=== PATIENT | female | born 1980 | race Caucasian/White ===

== ENCOUNTER 2016-10-26 11:40 | Outpatient (CLI) | payer BC, OTHER | END 2016-10-26 11:41 | disposition home or self-care (01) | DX: R00.0 Tachycardia, unspecified (principal); D50.9 Iron deficiency anemia, unspecified; E78.2 Mixed hyperlipidemia ==

== ENCOUNTER 2016-11-02 08:03 | Outpatient (CLI) | payer OTHER | END 2016-11-02 08:04 | disposition home or self-care (01) | DX: E01.0 Iodine-deficiency related diffuse (endemic) goiter (principal) ==

== ENCOUNTER 2016-12-12 08:10 | Outpatient (CLI) | payer OTHER | END 2016-12-12 08:11 | disposition home or self-care (01) | DX: Z51.81 Encounter for therapeutic drug level monitoring (principal); E78.2 Mixed hyperlipidemia ==

== ENCOUNTER 2017-07-03 08:00 | Outpatient (CLI) | payer OTHER | END 2017-07-03 08:01 | disposition home or self-care (01) | LOC: LAB.WCP 08:00 | PROVIDERS: ATTEND Physician Assistant Medical | DX: J02.9 Acute pharyngitis, unspecified (principal) | CPT/HCPCS: 87070; 87275; 87276 ==

== ENCOUNTER 2017-07-13 10:42 | Outpatient (CLI) | payer OTHER ==
[2017-07-13 19:23] LABS: BASOPHILS # (AUTO) 0.1 10^3/uL (0.0-0.1); BASOPHILS % (AUTO) 0.6 %; EOSINOPHILS # (AUTO) 0.3 10^3/uL (0.0-0.7); EOSINOPHILS % (AUTO) 2.9 %; HCT - HEMATOCRIT 42.4 % (37.0-47.0); HGB - HEMOGLOBIN 14.2 g/dL (12.0-16.0); LYMPHOCYTES # (AUTO) 2.6 10^3/uL (1.5-3.5); LYMPHOCYTES % (AUTO) 25.5 %; MEAN CORPUSCULAR HGB CONC 33.5 g/dL (32.0-36.0); MEAN CORPUSCULAR VOLUME 89.8 fL (81.0-99.0); MEAN PLATELET VOLUME 8.5 fL (7.9-10.8); MONOCYTES # (AUTO) 0.6 10^3/uL (0.0-1.0); MONOCYTES % (AUTO) 6.3 %; NEUTROPHILS # (AUTO) 6.6 10^3/uL (1.5-6.6); NEUTROPHILS % (AUTO) 64.7 %; RED BLOOD COUNT 4.72 10^6/uL (4.20-5.40); RED CELL DISTRIBUTION WIDTH 12.5 % (12.0-15.0); UNCORRECTED WHITE BLOOD COUNT 10.1 x10^3/uL; WHITE BLOOD COUNT 10.1 x10^3/uL (4.8-10.8)
== END 2017-07-13 10:43 | disposition home or self-care (01) ==
LOC: LAB.WCP 10:42
PROVIDERS: ATTEND Physician Assistant Medical
DX: J20.9 Acute bronchitis, unspecified (principal)
CPT/HCPCS: 36415; 85025

== ENCOUNTER 2017-10-24 18:19 | Emergency (ER) | payer OTHER ==
[2017-10-24] MEDS ORDERED: KETOROLAC 60 MG/2 ML VIAL IVP STA (20:09)
[2017-10-24] MEDS ORDERED: SODIUM CHLORIDE 0.9% 1,000 ML IV ONE (20:09)
[2017-10-24] MEDS ORDERED: diphenhydrAMINE INJ 50 MG/ML VIAL IVP STA (20:10)
[2017-10-24] MEDS ORDERED: METOCLOPRAMIDE 10 MG/2 ML VIAL IVP STA (20:10)
--- NOTE | 2017-10-24 20:21 | ED Physician Documentation ---
PD HPI HEADACHE - Stated complaint Stated Complaint: GARCIA/BLURRY VISION - Chief complaint Chief Complaint: Neuro - History obtained from History obtained from: Patient, Friend - History of Present Illness Timing - onset: How many days ago (5) Timing - onset during: Rest Timing - duration: Days Timing - details: Gradual onset, Still present Location: Back Quality: Aching. No: Like head is exploding Associated symptoms: Vision changes. No: Fever, Stiff neck, Nausea, Vomiting, Weakness Improved by: Rest, Dark room, Quiet Worsened by: Light, Noise Similar symptoms before: Has not had sx before Recently seen: Not recently seen - Additional information Additional information: Patient is a 36 year old female with no significant past medical history who is presenting to the emergency department for the last five days. patient states that it started slowly and has become progressively worse. Patient states that it is in the back of her head. Patient reports that it gets better when she lies down or has a dark room. Review of Systems Constitutional: denies: Fever, Chills, Myalgias Eyes: reports: Decreased vision, Photophobia Ears: denies: Ear pain, Drainage/discharge Nose: denies: Congestion, Sinus pressure / pain Throat: denies: Dental pain / toothache, Sore throat Cardiac: denies: Chest pain / pressure, Palpitations GI: denies: Nausea, Vomiting : reports: Reviewed and negative Skin: reports: Reviewed and negative Musculoskeletal: denies: Neck pain, Back pain, Extremity pain, Joint pain Neurologic: reports: Headache. 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: section, Dilation and currettage, LEEP (Cervical surgery) - Present Medications Home Medications: Ambulatory Orders Medication Instructions Recorded Confirmed Atorvastatin Calcium 80 mg PO DAILY 10/24/17 10/24/17 Ubidecarenone/Vitamin E Mixed 1 cap PO DAILY 10/24/17 10/24/17 [[id number] E 100 mg-10 Unit Sfg] - Allergies Allergies/Adverse Reactions: Allergies Allergy/AdvReac Type Severity Reaction Status Date / Time iodine Allergy Severe Respiratory Verified 10/24/17 19:14 naproxen Allergy Unknown unknown Verified 10/24/17 19:14 doxycyccline Allergy Unknown unknown Uncoded 10/24/17 19:14 - Social History Does the pt smoke?: No Smoking Status: Never smoker Does the pt drink ETOH?: No Does the pt have substance abuse?: No - Immunizations Immunizations are current?: Yes - POLST Patient has POLST: No PD ED PE NORMAL - Vitals Vital signs reviewed: Yes - General General: Alert and oriented X 3, No acute distress, Well developed/nourished - HEENT HEENT: Atraumatic, PERRL, Moist mucous membranes - Neck Neck: Supple, no meningeal sign - Cardiac Cardiac: RRR, No murmur - Respiratory Respiratory: No respiratory distress, Clear bilaterally - Abdomen Abdomen: Soft, Non tender, Non distended - Derm Derm: Normal color, Warm and dry, No rash - Extremities Extremities: No deformity - Neuro Neuro: Alert and oriented X 3, pulpwood cutter 2-12 intact, No motor deficit, No sensory deficit, Normal speech Eye Opening: Spontaneous Motor: Obeys Commands Verbal: Oriented GCS Score: 15 - Psych Psych: Normal mood Results - Vitals Vitals: Vital Signs - 24 hr 10/24/17 10/24/17 18:29 21:17 Temperature 37.0 C Heart Rate 123 H 100 Respiratory 18 16 Rate Blood Pressure 147/104 H 143/100 H O2 Saturation 99 98 Oxygen O2 Source Room air PD MEDICAL DECISION MAKING - ED course Complexity details: reviewed old records, reviewed results, re-evaluated patient , considered differential, d/w patient ED course: Patient was seen and examined at bedside. Patient was well appearing and in no acute distress. IV access was gained and patient was treated with toradol, reglan benadryl and fluids. Patient had no neurological deficit and was well appearing. Patient's headache improved to a three with the treatment. Patient wa mildly hypertensive, and was agreed that she would monitor her blood pressures for the next three days and had a follow up appointment on sunday. While serious etiologies of the headache were considered they were unlikely at this time. Patient required no further work up and was stable for discharge with outpatient follow up. Departure - Departure Disposition: Home, Self Care Clinical Impression: Headache Condition: Good Instructions: ED Headache Tension Follow-Up: Yolanda Lilly PA-C [Primary Care Provider] - Within 3 Days Comments: Your blood pressure was high today and you will need to monitor it over the next few days. You should take it every morning and every night and bring the results with you to your doctor's office. You should sleep in a dark room tonight and avoid any stimuli. You can alternate between motrin and tylenol as needed for pain. You may return to the emergency department at any time for new , worsening or uncontrollable symptoms. Discharge Date/Time: 10/24/17 21:34
[2017-10-24 21:18] VITALS: BP 143/100
== END 2017-10-24 21:34 | disposition home or self-care (01) ==
LOC: ED 18:19
DX: R51 Headache (principal); R03.0 Elevated blood-pressure reading, without diagnosis of hypertension
CPT/HCPCS: 96361; 96374; 96375; 99283

== ENCOUNTER 2018-03-07 10:48 | Outpatient (CLI) | payer OTHER ==
[2018-03-07 19:06] LABS: BASOPHILS % (AUTO) 0.7 %; EOSINOPHILS # (AUTO) 0.1 10^3/uL (0.0-0.7); EOSINOPHILS % (AUTO) 1.7 %; LYMPHOCYTES # (AUTO) 1.5 10^3/uL (1.5-3.5); LYMPHOCYTES % (AUTO) 21.7 %; MEAN CORPUSCULAR HEMOGLOBIN 29.2 pg (27.0-31.0); MEAN CORPUSCULAR HGB CONC 32.2 g/dL (32.0-36.0); MEAN CORPUSCULAR VOLUME 90.7 fL (81.0-99.0); MEAN PLATELET VOLUME 9.5 fL (7.9-10.8); MONOCYTES # (AUTO) 0.4 10^3/uL (0.0-1.0); MONOCYTES % (AUTO) 5.7 %; NEUTROPHILS # (AUTO) 4.8 10^3/uL (1.5-6.6); NEUTROPHILS % (AUTO) 70.2 %; PLT - PLATELET COUNT 326 10^3/uL (130-450); RED BLOOD COUNT 4.79 10^6/uL (4.20-5.40); RED CELL DISTRIBUTION WIDTH 13.2 % (12.0-15.0); WHITE BLOOD COUNT 6.8 x10^3/uL (4.8-10.8)
[2018-03-07 19:21] LABS: HEMOGLOBIN A1C 0.58 g/dL; HEMOGLOBIN A1C % 5.5 % (4.6-6.2)
[2018-03-07 19:31] LABS: % IRON SATURATION 21 % (20-50); ALBUMIN 4.4 g/dL (3.2-5.5); ALBUMIN/GLOBULIN RATIO 1.1 (1.0-2.2); ALKALINE PHOSPHATASE 67 IU/L (42-121); ALT ALANINE AMINOTRANSFERASE 20 IU/L (10-60); AST ASPARTATE AMINOTRANSFERASE 18 IU/L (10-42); BILIRUBIN,TOTAL 0.6 mg/dL (0.2-1.0); BUN - BLOOD UREA NITROGEN 10 mg/dL (6-20); CALCIUM 9.3 mg/dL (8.5-10.3); CARBON DIOXIDE - CO2 24 mmol/L (21-32); CHLORIDE 101 mmol/L (101-111); CHOL/HDL RATIO 5.9 (<4.4); CHOLESTEROL 308 mg/dL; CREATININE 0.6 mg/dL (0.4-1.0); GFR - MDRD 111 (>89); GLUCOSE 92 mg/dL (70-100); HDL CHOLESTEROL 52 mg/dL; IRON 84 ug/dL (28-170); LDL CHOLESTEROL,CALCULATED 212 mg/dL; LDL/HDL RATIO 4.1 (<4.4); SODIUM 134 mmol/L (135-145); THYROID STIMULATING HORMONE 1.18 uIU/mL (0.34-5.60); TOTAL IRON BINDING CAPACITY 398 ug/dL (250-450); TOTAL PROTEIN 8.4 g/dL (6.7-8.2); TRANSFERRIN 284 mg/dL (192-382); VLDL CHOLESTEROL 44 mg/dL
[2018-03-07 19:38] LABS: FERRITIN 62.2 ng/mL (11.0-306.8)
[2018-03-07 19:41] LABS: FOLATE 16.6 ng/mL (5.90 - >24.8)
== END 2018-03-07 10:49 | disposition home or self-care (01) ==
LOC: LAB.WCP 10:48
PROVIDERS: ATTEND Physician Assistant
DX: Z00.00 Encounter for general adult medical examination without abnormal findings (principal); R53.83 Other fatigue; E78.2 Mixed hyperlipidemia; E66.3 Overweight; E55.9 Vitamin D deficiency, unspecified; D50.9 Iron deficiency anemia, unspecified; Z79.899 Other long term (current) drug therapy
CPT/HCPCS: 36415; 80053; 80061; 82306; 82607; 82728; 82746; 83036; 83540; 83721; 84443; 84466; 85025

== ENCOUNTER 2018-04-16 07:54 | Outpatient (CLI) | payer OTHER ==
[2018-04-16 13:51] LABS: ALBUMIN 3.7 g/dL (3.2-5.5); ALBUMIN/GLOBULIN RATIO 0.9 (1.0-2.2); ALKALINE PHOSPHATASE 78 IU/L (42-121); ALT ALANINE AMINOTRANSFERASE 28 IU/L (10-60); AST ASPARTATE AMINOTRANSFERASE 22 IU/L (10-42); BILIRUBIN,TOTAL 0.6 mg/dL (0.2-1.0); BUN - BLOOD UREA NITROGEN 9 mg/dL (6-20); CALCIUM 8.9 mg/dL (8.5-10.3); CARBON DIOXIDE - CO2 26 mmol/L (21-32); CHLORIDE 107 mmol/L (101-111); CHOL/HDL RATIO 3.6 (<4.4); CHOLESTEROL 132 mg/dL; CREATININE 0.7 mg/dL (0.4-1.0); GFR - MDRD 93 (>89); GLUCOSE 99 mg/dL (70-100); HDL CHOLESTEROL 37 mg/dL; LDL CHOLESTEROL,CALCULATED 67 mg/dL; LDL/HDL RATIO 1.8 (<4.4); SODIUM 138 mmol/L (135-145); TOTAL PROTEIN 7.7 g/dL (6.7-8.2); VLDL CHOLESTEROL 28 mg/dL
== END 2018-04-16 07:55 | disposition home or self-care (01) ==
LOC: LAB.WCP 07:54
PROVIDERS: ATTEND Physician Assistant
DX: I10 Essential (primary) hypertension (principal); E78.2 Mixed hyperlipidemia
CPT/HCPCS: 36415; 80053; 80061; 83721

== ENCOUNTER 2018-05-31 20:52 | Emergency (ER) | payer OTHER ==
--- NOTE | 2018-05-31 22:46 | ED Physician Documentation ---
History of Present Illness - Stated complaint Stated Complaint: SOA/BACK PX/FEV/JOSE F - Chief complaint Chief Complaint: Resp - History obtained from History obtained from: Patient - History of Present Illness Timing: Other (headache: today ruq/epigastric pain x 10 days) Pain level now: 6 Improved by: no ameliorating factors Worsened by: no exacerbating factors - Additonal information Additional information: c/o 10 days of intermittent ruq and epigastric pain that radiates to back. also c/o bifrontal headache x 1 day. saw PMD 1 week ago, rx augmentin and flonase ( patient says diagnosis was sinusitis). Review of Systems Constitutional: reports: Reviewed and negative Cardiac: reports: Reviewed and negative Respiratory: reports: Reviewed and negative GI: reports: Abdominal Pain, Nausea. denies: Vomiting, Constipation, Diarrhea : denies: Dysuria, Frequency Skin: denies: Rash Neurologic: reports: Headache. 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, Tubal ligation, LEEP ( Cervical surgery), Other - Present Medications Home Medications: Ambulatory Orders Medication Instructions Recorded Confirmed Atorvastatin Calcium 80 mg PO DAILY 10/24/17 10/24/17 Ubidecarenone/Vitamin E Mixed 1 cap PO DAILY 10/24/17 10/24/17 [[id number] E 100 mg-10 Unit Sfg] oxyCODONE/ACET 5/325 [Percocet 5 1 - 2 each PO Q6H PRN #14 tablet 06/01/18 mg/325 mg] - Allergies Allergies/Adverse Reactions: Allergies Allergy/AdvReac Type Severity Reaction Status Date / Time iodine Allergy Severe Respiratory Verified 05/31/18 21:08 naproxen Allergy Unknown unknown Verified 05/31/18 21:08 doxycyccline Allergy Unknown unknown Uncoded 05/31/18 21:08 - Social History Does the pt smoke?: No Smoking Status: Never smoker Does the pt drink ETOH?: No Does the pt have substance abuse?: No - Immunizations Immunizations are current?: Yes - POLST Patient has POLST: No PD ED PE NORMAL - Vitals Vital signs reviewed: Yes - General General: Alert and oriented X 3, No acute distress, Well developed/nourished - HEENT HEENT: PERRL, EOMI, Ears normal, Moist mucous membranes, Pharynx benign - Neck Neck: Supple, no meningeal sign - Cardiac Cardiac: RRR, No murmur - Respiratory Respiratory: No respiratory distress, Clear bilaterally - Abdomen Abdomen: Normal bowel sounds, Soft, Non distended, Other (mild RUQ and epigastrid tenderness without rebound or guarding) - Derm Derm: Normal color, Warm and dry - Neuro Neuro: Alert and oriented X 3, manager games 2-12 intact, No motor deficit, No sensory deficit, Normal speech Eye Opening: Spontaneous Motor: Obeys Commands Verbal: Oriented GCS Score: 15 Results - Vitals Vitals: Oxygen O2 Source Room air - Labs Labs: Laboratory Tests 05/31/18 05/31/18 05/31/18 23:20 23:25 23:25 WBC 9.0 RBC 4.86 Hgb 14.8 Hct 42.8 MCV 88.2 MCH 30.4 MCHC 34.5 RDW 13.0 Plt Count 324 MPV 8.9 Neut # (Auto) 6.4 Lymph # (Auto) 1.9 [place] # (Auto) 0.5 Eos # (Auto) 0.1 Baso # (Auto) 0.1 Absolute Nucleated RBC 0.00 Nucleated RBC % 0.0 D-Dimer Sodium 137 Potassium 3.7 Chloride 100 L Carbon Dioxide 27 Anion Gap 10.0 BUN 12 Creatinine 0.7 Estimated GFR (MDRD) 93 Glucose 102 H Calcium 9.7 Total Bilirubin 0.8 AST 28 ALT 34 Alkaline Phosphatase 94 Total Protein 9.0 H Albumin 4.8 Globulin 4.2 Albumin/Globulin Ratio 1.1 Lipase 27 Urine Color YELLOW Urine Clarity CLEAR Urine pH 6.0 Ur Specific [place] 1.010 Urine Protein NEGATIVE Urine Glucose (UA) NEGATIVE Urine Ketones NEGATIVE Urine Occult Blood NEGATIVE Urine Nitrite NEGATIVE Urine Bilirubin NEGATIVE Urine Urobilinogen 0.2 (NORMAL) Ur Leukocyte Esterase NEGATIVE Ur Microscopic Review NOT INDICATED Urine Culture Comments NOT INDICATED 05/31/18 23:25 WBC RBC Hgb Hct MCV MCH MCHC RDW Plt Count MPV Neut # (Auto) Lymph # (Auto) [place] # (Auto) Eos # (Auto) Baso # (Auto) Absolute Nucleated RBC Nucleated RBC % D-Dimer 200.8 Sodium Potassium Chloride Carbon Dioxide Anion Gap BUN Creatinine Estimated GFR (MDRD) Glucose Calcium Total Bilirubin AST ALT Alkaline Phosphatase Total Protein Albumin Globulin Albumin/Globulin Ratio Lipase Urine Color Urine Clarity Urine pH Ur Specific [place] Urine Protein Urine Glucose (UA) Urine Ketones Urine Occult Blood Urine Nitrite Urine Bilirubin Urine Urobilinogen Ur Leukocyte Esterase Ur Microscopic Review Urine Culture Comments - Rads (name of study) RUQ US Radiology: Prelim report reviewed, See rad report PD MEDICAL DECISION MAKING - ED course Complexity details: reviewed results, re-evaluated patient, considered differential, d/w patient - Sepsis Event Vital Signs: Oxygen O2 Source Room air Departure - Departure Disposition: Home, Self Care Clinical Impression: Abdominal pain Headache Qualifiers: Headache type: unspecified Headache chronicity pattern: acute headache Intractability: not intractable Qualified Code(s): R51 - Headache Condition: Good Instructions: ED Abdominal Pain Unkn Cause, ED Cephalgia Unspecified Follow-Up: Della Guerrero PA [Primary Care Provider] - Prescriptions: oxyCODONE/ACET 5/325 [Percocet 5 mg/325 mg] 1 - 2 each PO Q6H PRN #14 tablet PRN Reason: Pain Discharge Date/Time: 06/01/18 02:03
[2018-05-31] MEDS ORDERED: HYDROcod/ACETAM 5/325 MG TABLET PO STA (23:09)
[2018-05-31 23:29] LABS: BASOPHILS # (AUTO) 0.1 10^3/uL (0.0-0.1); BASOPHILS % (AUTO) 0.8 %; EOSINOPHILS # (AUTO) 0.1 10^3/uL (0.0-0.7); HGB - HEMOGLOBIN 14.8 g/dL (12.0-16.0); LYMPHOCYTES # (AUTO) 1.9 10^3/uL (1.5-3.5); LYMPHOCYTES % (AUTO) 21.2 %; MEAN CORPUSCULAR HEMOGLOBIN 30.4 pg (27.0-31.0); MEAN CORPUSCULAR HGB CONC 34.5 g/dL (32.0-36.0); MEAN CORPUSCULAR VOLUME 88.2 fL (81.0-99.0); MEAN PLATELET VOLUME 8.9 fL (7.9-10.8); MONOCYTES # (AUTO) 0.5 10^3/uL (0.0-1.0); MONOCYTES % (AUTO) 5.8 %; NEUTROPHILS # (AUTO) 6.4 10^3/uL (1.5-6.6); NEUTROPHILS % (AUTO) 71.2 %; PLT - PLATELET COUNT 324 10^3/uL (130-450); RED BLOOD COUNT 4.86 10^6/uL (4.20-5.40)
[2018-05-31 23:34] LABS: BILIRUBIN,URINE NEGATIVE (NEGATIVE); GLUCOSE, URINE (UA) NEGATIVE (NEGATIVE); KETONES,URINE (UA) NEGATIVE (NEGATIVE); LEUKOCYTE ESTERASE, URINE NEGATIVE (NEGATIVE); NITRITE,URINE NEGATIVE (NEGATIVE); OCCULT BLOOD,URINE NEGATIVE (NEGATIVE); PROTEIN,URINE NEGATIVE (NEGATIVE); UROBILINOGEN,URINE 0.2 (NORMAL) E.U./dL (NORMAL)
[2018-05-31 23:36] LABS: CLARITY,URINE CLEAR (CLEAR)
[2018-05-31 23:41] LABS: ALBUMIN 4.8 g/dL (3.2-5.5); ALBUMIN/GLOBULIN RATIO 1.1 (1.0-2.2); BILIRUBIN,TOTAL 0.8 mg/dL (0.2-1.0); CALCIUM 9.7 mg/dL (8.5-10.3); CREATININE 0.7 mg/dL (0.4-1.0)
--- NOTE | 2018-06-01 00:30 | Ultrasound Report ---
Reason: RUQ pain Procedure Date: 06/01/2018 Accession Number: [id number] / [id number] Procedure: US - Abdomen Limited CPT Code: FULL RESULT: EXAM: ABDOMEN ULTRASOUND LIMITED, RUQ EXAM DATE: 06/01/2018 12:05 AM. CLINICAL HISTORY: Right upper quadrant pain COMPARISON: Report of ultrasound 10/22/2013. TECHNIQUE: Real-time scanning was performed with static images obtained. FINDINGS: Liver: Normal in size and echotexture. 17.2 cm. Main portal vein flow: Hepatopetal. Gallbladder: Stable small polyp on the anterior wall of the gallbladder. No cholelithiasis, wall thickening, or para cholecystic fluid. Biliary System: CBD measures 6 mm. No intrahepatic or extrahepatic ductal dilatation. Other: No right hydronephrosis. No free fluid. IMPRESSION: No cholelithiasis or cholecystitis. No significant interval change. RADIA
[2018-06-01 01:08] VITALS: BP 142/93
== END 2018-06-01 02:03 | disposition home or self-care (01) ==
LOC: ED 20:52
DX: R10.11 Right upper quadrant pain (principal); R10.13 Epigastric pain; R51 Headache; E78.00 Pure hypercholesterolemia, unspecified
CPT/HCPCS: 36415; 76705; 80053; 81003; 83690; 85025; 85379; 99283; A9270; 81001; 87086

== ENCOUNTER 2018-06-19 09:49 | Outpatient (CLI) | payer OTHER ==
--- NOTE | 2018-06-19 14:52 | Mammography Report ---
Reason: LUMP, MASTALGIA Procedure Date: 06/19/2018 Accession Number: [id number] / [id number] Procedure: RICHA - Diagnostic Dig Bilat CPT Code: FULL RESULT: EXAM: Diagnostic Dig Bilat and bilateral breast ultrasound DATE: 06/19/2018 10:35 AM CLINICAL HISTORY: Bilateral palpable breast lumps. Right retroareolar. Left upper outer quadrant and lower outer quadrant. TECHNIQUE: Bilateral MLO and CC breast views focused sonography of both breasts. COMPARISON: Mammogram November 12, 2012 FINDINGS: The breast parenchyma is extremely dense which may limit the sensitivity of mammography. Right breast: Retroareolar mass is demonstrated at anterior depth. This corresponds with palpable abnormality. Left breast: Upper outer quadrant mass and the lower outer quadrant mass correspond with palpable abnormalities. No architectural distortion or concerning cluster of microcalcifications is seen. Focused breast sonography was performed: Right breast: Hypoechoic retroareolar mass is well-circumscribed, homogeneous, and wider than tall. Adjacent to it is a small nodule measuring 1.1 cm. In 2 ultrasound images it has generally benign features, but in the other image has angular margins and is taller than wide. Upper outer quadrant hypoechoic homogeneous wider than tall mass 1.8 cm. Adjacent to it at 12:00 is a similar appearing mass 1.3 cm. Left breast: Left upper outer quadrant dominant mass corresponds with the mammographic and palpable findings. Hypoechoic, homogeneous, well-circumscribed, and wider than tall. Smaller mass at the 3:00 position likely corresponds with the lower outer quadrant mass seen on the mammogram with palpability. Similar appearance of this mass. There are multiple other smaller similar appearing masses within all quadrants apart from the lower inner quadrant. IMPRESSION: 1. 1.1 cm right breast mass has a suspicious appearance. BI-RADS Category 4. Suspicious abnormality. Biopsy should be considered. 2. Additional dominant less concerning but still suspicious right retroareolar mass 1.8 cm. Biopsy should be considered. 3. Dominant left breast mass upper outer quadrant 1.6 cm. Suspicious abnormality. Biopsy should be considered. BI-RADS Category 4 lesions in both breasts. RECOMMENDATION: The patient has been scheduled in our clinic for June 24, 2018 for bilateral breast biopsies. Note: These findings were discussed with the ordering provider Christiana Bah on the day of the examination June 19, 2018 at 1:30 PM and she expressed understanding. STANDARD QUALIFYING STATEMENTS: 1. This examination was reviewed with the aid of Computer-Aided Detection (CAD). 2. A negative or benign imaging report should not delay biopsy if clinically suspicious findings are present. Consider surgical consultation if warrented. More than 5% of cancers are not identified by imaging. 3. Dense breasts may obscure an underlying neoplasm.
== END 2018-06-19 09:50 | disposition home or self-care (01) ==
LOC: DI 09:49
PROVIDERS: ATTEND Nurse Practitioner Obstetrics & Gynecology
DX: N63.21 Unspecified lump in the left breast, upper outer quadrant (principal); N63.41 Unspecified lump in right breast, subareolar; N63.23 Unspecified lump in the left breast, lower outer quadrant; N63.11 Unspecified lump in the right breast, upper outer quadrant
CPT/HCPCS: 76642; 77066

== ENCOUNTER 2018-06-21 08:47 | Outpatient (CLI) | payer OTHER ==
[2018-06-21] MEDS ORDERED: SINCALIDE 5 MCG VIAL ONE (10:03)
[2018-06-21] MEDS ORDERED: SINCALIDE 1.7 MCG in SODIUM CHLORIDE 0.9% 50 ML IV ONE (12:40)
--- NOTE | 2018-06-21 16:13 | Nuclear Medicine Report ---
Reason: RUQ PAIN,POLY,GALLBLADDER Procedure Date: 06/21/2018 Accession Number: [id number] / [id number] Procedure: NM - Hepatobiliary HIDA w/ Rx CPT Code: FULL RESULT: EXAM: HEPATOBILIARY SCAN WITH CCK/KINEVAC ADMINISTRATION EXAM DATE: 06/21/2018 12:44 PM. CLINICAL HISTORY: RUQ PAIN,POLY,GALLBLADDER. COMPARISON: Ultrasound exam dated 05/31/2018. TECHNIQUE: Following the intravenous administration of 5.2 mCi of Tc99m Mebrofenin, a hepatobiliary scan was done centered on the liver and gallbladder in multiple sequential images and projections. Following the intravenous administration of 1.71 mcg of CCK/ Kinevac over the course of approximately 60 minutes, dynamic imaging was done and the gallbladder ejection fraction was calculated. FINDINGS: Normal extraction of tracer from the blood pool indicating normal hepatocellular function. The liver size and shape is grossly within normal limits. There is activity visualized within the bile ducts and gallbladder within the first hour. Small bowel activity is present after CCK was administered. With CCK administration, the gallbladder demonstrates an effective contraction. The gallbladder ejection fraction is calculated to be 99%, well above the lower limit of normal of 38% for a 60-minute injection. The patient did not report symptoms after CCK administration. Positive for enterogastric bile reflux. IMPRESSION: 1. Patent cystic duct. 2. Patent common bile duct. 3. Negative for acute or chronic cholecystitis. 4. Positive for enterogastric bile reflux. 5. Gallbladder ejection fraction of 99%. RADIA
== END 2018-06-21 08:48 | disposition home or self-care (01) ==
LOC: DI 08:47
PROVIDERS: ATTEND Surgery
DX: K31.89 Other diseases of stomach and duodenum (principal); R10.11 Right upper quadrant pain
CPT/HCPCS: 78227; J7040

== ENCOUNTER 2018-06-24 09:24 | Outpatient (CLI) | payer OTHER ==
[2018-06-24] MEDS ORDERED: BUFFERED LIDOCAINE 10 ML SYRINGE IU ONE (16:51)
[2018-06-24] MEDS ORDERED: BUPIVACAINE 0.5%-EPI 1:200000 PF 10 ML VIAL SUBQ ONE (16:51)
--- NOTE | 2018-06-25 16:40 | Ultrasound Report ---
Reason: BREAST NODULE Procedure Date: 06/24/2018 Accession Number: [id number] / [id number] Procedure: US - Biopsy Breast Ea Addl Core CPT Code: 74290 FULL RESULT: EXAM: Biopsy Breast Core, Biopsy Breast Ea Addl Core, Biopsy Breast Ea Addl Core DATE: 06/24/2018 12:15 PM CLINICAL HISTORY: BILATERAL BREAST NODULES - 3 SITES COMPARISON: None. TECHNIQUE: The risks, benefits, and alternatives of the procedure were discussed with the patient. All questions were answered. Written and verbal consent were obtained. The bilateral breasts were preliminarily surveyed by ultrasound, the 2 targeted right breast lesions in the 1 targeted left breast lesion were identified and the skin was marked and prepped and draped in a sterile manner. Local anesthesia was performed with 1% lidocaine for each lesion. A 14-gauge core biopsy needle was then advanced sequentially under direct ultrasound guidance into each lesion were 3 cores with 3 passes were obtained at each lesion. The biopsy device was removed. There was no apparent Immediate complication. Relevant images of fundraising sale representative core biopsy samples were obtained at each biopsy site. FINDINGS: The larger right breast lesion was well-circumscribed and hypoechoic with an appearance most suggestive of a fibroadenoma but not diagnostic thereof. The smaller right-sided breast lesion was heterogeneous hypoechoic with more irregular margins and possibly suggestive of a duct related finding. The left breast lesion of interest a well defined border was taller than wide and hypoechoic. IMPRESSION: Bilateral core biopsies of breast lesions, two lesions on the right and one lesion on the left. BI-RADS 4 RADIA
--- NOTE | 2018-06-25 16:40 | Ultrasound Report ---
Reason: BILATERAL BREAST NODULES - 3 SITES Procedure Date: 06/24/2018 Accession Number: [id number] / [id number] Procedure: US - Biopsy Breast Core CPT Code: FULL RESULT: EXAM: Biopsy Breast Core, Biopsy Breast Ea Addl Core, Biopsy Breast Ea Addl Core DATE: 06/24/2018 12:15 PM CLINICAL HISTORY: BILATERAL BREAST NODULES - 3 SITES COMPARISON: None. TECHNIQUE: The risks, benefits, and alternatives of the procedure were discussed with the patient. All questions were answered. Written and verbal consent were obtained. The bilateral breasts were preliminarily surveyed by ultrasound, the 2 targeted right breast lesions in the 1 targeted left breast lesion were identified and the skin was marked and prepped and draped in a sterile manner. Local anesthesia was performed with 1% lidocaine for each lesion. A 14-gauge core biopsy needle was then advanced sequentially under direct ultrasound guidance into each lesion were 3 cores with 3 passes were obtained at each lesion. The biopsy device was removed. There was no apparent Immediate complication. Relevant images of lead generation representative core biopsy samples were obtained at each biopsy site. FINDINGS: The larger right breast lesion was well-circumscribed and hypoechoic with an appearance most suggestive of a fibroadenoma but not diagnostic thereof. The smaller right-sided breast lesion was heterogeneous hypoechoic with more irregular margins and possibly suggestive of a duct related finding. The left breast lesion of interest a well defined border was taller than wide and hypoechoic. IMPRESSION: Bilateral core biopsies of breast lesions, two lesions on the right and one lesion on the left. BI-RADS 4 RADIA
--- NOTE | 2018-06-25 16:40 | Ultrasound Report ---
Reason: BILAT BREAST NODULES Procedure Date: 06/24/2018 Accession Number: [id number] / [id number] Procedure: US - Biopsy Breast Ea Addl Core CPT Code: 65187 FULL RESULT: EXAM: Biopsy Breast Core, Biopsy Breast Ea Addl Core, Biopsy Breast Ea Addl Core DATE: 06/24/2018 12:15 PM CLINICAL HISTORY: BILATERAL BREAST NODULES - 3 SITES COMPARISON: None. TECHNIQUE: The risks, benefits, and alternatives of the procedure were discussed with the patient. All questions were answered. Written and verbal consent were obtained. The bilateral breasts were preliminarily surveyed by ultrasound, the 2 targeted right breast lesions in the 1 targeted left breast lesion were identified and the skin was marked and prepped and draped in a sterile manner. Local anesthesia was performed with 1% lidocaine for each lesion. A 14-gauge core biopsy needle was then advanced sequentially under direct ultrasound guidance into each lesion were 3 cores with 3 passes were obtained at each lesion. The biopsy device was removed. There was no apparent Immediate complication. Relevant images of medical claims representative core biopsy samples were obtained at each biopsy site. FINDINGS: The larger right breast lesion was well-circumscribed and hypoechoic with an appearance most suggestive of a fibroadenoma but not diagnostic thereof. The smaller right-sided breast lesion was heterogeneous hypoechoic with more irregular margins and possibly suggestive of a duct related finding. The left breast lesion of interest a well defined border was taller than wide and hypoechoic. IMPRESSION: Bilateral core biopsies of breast lesions, two lesions on the right and one lesion on the left. BI-RADS 4 RADIA
== END 2018-06-24 09:25 | disposition home or self-care (01) ==
LOC: DI 09:24
PROVIDERS: ATTEND Nurse Practitioner Obstetrics & Gynecology
DX: D24.1 Benign neoplasm of right breast (principal); N63.11 Unspecified lump in the right breast, upper outer quadrant; D24.2 Benign neoplasm of left breast
CPT/HCPCS: 19083; 19084; 77066

== ENCOUNTER 2018-08-20 11:40 | Day surgery (SDC) | payer OTHER ==
[~2018-08-20 11:40] MED LIST: ceFAZolin 2 GM/50 ML 2 GM/50 ML BAG IV ONE
[2018-08-20] MEDS ORDERED: LACTATED RINGERS 1,000 ML IV ONE ×3 (12:23→16:06)
--- NOTE | 2018-08-20 13:23 | ANESTHESIA ---
Pre-Anesthesia VS, & Labs - Diagnosis Bilateral painful breast masses - Procedure Bilateral excision breast masses Vital Signs: Temp Pulse Resp BP Pulse Ox 36.6 C 81 16 144/84 H 99 08/20/18 12:03 08/20/18 12:03 08/20/18 12:03 08/20/18 12:03 08/20/18 12:03 Height 5 ft 6 in Weight (kg) 83.4 kg Body Mass Index 30.7 - NPO >8 hours Last Fluid Intake: water ay 0800 - Is Patient ?: Not Applicable Home Medications and Allergies Atorvastatin Calcium 40 mg PO DAILY 10/24/17 Allergies/Adverse Reactions: Allergies Allergy/AdvReac Type Severity Reaction Status Date / Time iodine Allergy Severe Respiratory Verified 05/31/18 21:08 naproxen Allergy Unknown unknown Verified 05/31/18 21:08 doxycyccline Allergy Unknown unknown Uncoded 05/31/18 21:08 Anes History & Medical History - Anesthetic History Anesthesia Complications: reports: No previous complications Family history of Anesthesia Complications: Denies Family history of Malignant Hyperthermia: Denies - Medical History Cardiovascular: reports: High cholesterol Pulmonary: reports: None Gastrointestinal: reports: None Urinary: reports: None Neuro: reports: None Musculoskeletal: reports: None Endocrine/Autoimmune: reports: None Blood Disorders: reports: None Skin: reports: None Smoking Status: Never smoker Psychosocial: reports: No issues indicated - Surgical History Gynecologic: section, Dilation and currettage, Tubal ligation, LEEP (Cervical surgery), Other Exam General: Alert Dental: WNL Mouth Opening: Greater than 4 Fingerbreadths Neck Mobility: Normal Mallampati classification: I Thyromental Distance: greater than 6 cm Respiratory: Lungs clear Cardiovascular: Regular rate Neurological: Normal speech Mental/Cognitive Status: Alert/Oriented X3 Cognitive Status: Within normal limits Plan Anesthesia Type: General Consent for Procedure(s) Verified and Reviewed: Yes Code Status: Attempt Resuscitation ASA classification: 2-Mild systemic disease Is this case an emergency?: No
[2018-08-20] MEDS ORDERED: BUPIVACAINE 0.5% PF 30 ML VIAL ONE (13:45)
[2018-08-20] MEDS ORDERED: BUPIVACAINE 0.5% PF 30 ML VIAL SUBQ ONE ×2 (14:52)
[2018-08-20] MEDS ORDERED: MIDAZOLAM 2 MG/2 ML VIAL IVP ONE (14:55)
[2018-08-20] MEDS ORDERED: ONDANSETRON 4 MG/2 ML VIAL IVP ONE (14:55)
[2018-08-20] MEDS ORDERED: fentaNYL 100 MCG/2 ML VIAL IVP ONE (14:55)
[2018-08-20] MEDS ORDERED: DEXAMETHASONE 4 MG/ML VIAL IVP ONE (14:55)
[2018-08-20] MEDS ORDERED: PROPOFOL 200 MG/20 ML VIAL IVP ONE (14:55)
[2018-08-20] MEDS ORDERED: KETOROLAC 30 MG/ML VIAL IVP ONE (14:55)
[2018-08-20] MEDS ORDERED: HYDROcod/ACETAM 5/325 MG TABLET PO PRN (16:04)
[2018-08-20] MEDS ORDERED: HYDROmorphone 0.5 MG/0.5 ML SYRINGE IVP PRN (16:04)
[2018-08-20] MEDS ORDERED: ONDANSETRON 4 MG/2 ML VIAL IVP PRN (16:04)
[2018-08-20] MEDS ORDERED: ACETAMINOPHEN 1,000 MG/100 ML 100 ML IV ONE (16:06)
--- NOTE | 2018-08-20 16:09 | OPERATIVE REPORT ---
Operative Report - General Planned Procedure: BILATERAL breast biopsy Pre-Op Diagnosis: Painful bilateral breast masses, favor fibroadenoma Procedure Performed: BILATERAL breast biopsy Post Op Diagnosis: Painful bilateral breast masses, favor fibroadenoma - Procedure Note Primary Surgeon: Mike Scruggs MD Anesthesia Provider: Thuy King CRNA Anesthesia Technique: General ET tube, Local (30 mL 1/2% marcaine () IV Fluids (mL): 1,400 Estimated Blood Loss (mL): 30 Complications: None. - Other Other Information/Narrative: OPERATIVE DESCRIPTION/REPORT: After verbal and written informed consent was obtained detailing the risks of infection, bleeding requiring transfusion with its risks, nerve injury, and , and after I met with the patient confirming the surgery and the site of the surgery and after initialing the site of the surgery with a surgical marker, the patient was brought to the operative suite and placed supine on the operating table. Great care was taken to avoid pressure points to prevent pressure necrosis or nerve injury. Monitoring devices were applied along with TEDs and pneumatic compressive stockings (to prevent DVT). The patient received preoperative antibiotics for surgical prophylaxis. [anesthesiologist] sedated and anesthetized the patient for the entire procedure. The patient was prepped and draped in the usual sterile manner. With the patient draped my initials were clearly visible. A "time in" then confirmed that the patient was identified with 3 identifiers (name, date and medical record number), the history and physical was in the chart, the signed consent confirming the p rocedure was in the chart, the patient was in the correct position, the aforementioned prophylactic measures were in place or given, we had the correct personnel and equipment to complete the procedure and that anesthesia, surgery and nursing were given an opportunity to express any concerns. With the agreement of everyone in the room, we proceeded with the operation. The LEFT side was addressed first. The skin overlying the mass was incised in a curvilinear fashion tracing the areolar-skin border. Dissection down to the mass was performed using a combination of Metzenbaum scissors and Bovie electrocautery. Every attempt was made to get minimal normal tissue around the lesion due to the fact that there are likely fibroadenomas. The specimen was not marked because it was clearly a fibroadenoma. Meticulous hemostasis was obtained using Bovie electrocautery. The subcutaneous tissues were approximated using interrupted 2-0 Vicryl. The skin incision was approximated with 4-0 Monocryl in a subcuticular fashion. The RIGHT side was then addressed in exactly the same way that the LEFT was done other than the fact that two distinct masses (again thought to be fibroadenomas) were removed. Each side was injected with 15 mL of half percent Marcaine. The skin was prepped with benzoin and steristrips were applied. A dressing was then applied. At this point a time out was performed that confirmed that all the counts were correct, the procedure that was performed, the blood loss, the IV fluids administered, and the patients condition. Having tolerated the procedure well, the patient was subsequently taken to recovery room in good and stable condition. Eloquii disclaimer: This document was created in part using voice recognition technology. Because of the inherent limitations of the system ([email or web address]'s El[employer] Dictate user manual states that the licensee understands that speech recognition is a statistical process and that recognition errors are inherent in the process), occasional same sounding word substitutions and grammatical errors do occur and persist despite proofreading. Please read this document for context.
[2018-08-20] MEDS ORDERED: HYDROcod/ACETAM 5/325 MG TABLET ONE (16:27)
[2018-08-20 16:53] VITALS: BP 139/93
== END 2018-08-20 11:41 | disposition home or self-care (01) ==
LOC: SDS 11:40
PROVIDERS: ATTEND Surgery
PROC: 0HBV0ZX Excision of Bilateral Breast, Open Approach, Diagnostic (ICD-10-PCS; principal; 2018-08-20 13:00)
DX: D24.2 Benign neoplasm of left breast (principal); D24.1 Benign neoplasm of right breast; E78.2 Mixed hyperlipidemia; Z87.891 Personal history of nicotine dependence
CPT/HCPCS: 19120; A9270; J0131; J0690; J7120

== ENCOUNTER 2018-10-14 17:05 | Outpatient (CLI) | payer OTHER | END 2018-10-14 23:59 | disposition home or self-care (01) | LOC: LAB.R 17:05 | PROVIDERS: ATTEND Nurse Practitioner | DX: J02.9 Acute pharyngitis, unspecified (principal) | CPT/HCPCS: 87070 ==

== ENCOUNTER 2018-12-26 08:00 | Outpatient (CLI) | payer OTHER ==
[2018-12-26 13:14] LABS: BASOPHILS % (AUTO) 0.8 %; EOSINOPHILS # (AUTO) 0.2 10^3/uL (0.0-0.7); EOSINOPHILS % (AUTO) 3.3 %; HGB - HEMOGLOBIN 14.4 g/dL (12.0-16.0); LYMPHOCYTES # (AUTO) 1.4 10^3/uL (1.5-3.5); LYMPHOCYTES % (AUTO) 27.1 %; MEAN CORPUSCULAR HEMOGLOBIN 30.4 pg (27.0-31.0); MEAN CORPUSCULAR HGB CONC 34.4 g/dL (32.0-36.0); MEAN CORPUSCULAR VOLUME 88.6 fL (81.0-99.0); MONOCYTES # (AUTO) 0.3 10^3/uL (0.0-1.0); MONOCYTES % (AUTO) 5.3 %; NEUTROPHILS # (AUTO) 3.2 10^3/uL (1.5-6.6); NEUTROPHILS % (AUTO) 63.5 %; PLT - PLATELET COUNT 327 10^3/uL (130-450); RED BLOOD COUNT 4.72 10^6/uL (4.20-5.40); RED CELL DISTRIBUTION WIDTH 13.2 % (12.0-15.0)
[2018-12-26 13:36] LABS: % IRON SATURATION 28 % (20-50); CHOL/HDL RATIO 3.2 (<4.4); CHOLESTEROL 146 mg/dL; HDL CHOLESTEROL 45 mg/dL; IRON 94 ug/dL (28-170); LDL CHOLESTEROL,CALCULATED 70 mg/dL; LDL/HDL RATIO 1.6 (<4.4); TOTAL IRON BINDING CAPACITY 342 ug/dL (250-450); TRANSFERRIN 244 mg/dL (192-382); VLDL CHOLESTEROL 31 mg/dL
[2018-12-26 13:37] LABS: CRP - C-REACTIVE PROTEIN < 1.0 mg/dL (0-1.0)
== END 2018-12-26 23:59 | disposition home or self-care (01) ==
LOC: LAB.WCP 08:00
PROVIDERS: ATTEND Physician Assistant
DX: I10 Essential (primary) hypertension (principal); R53.83 Other fatigue; E01.0 Iodine-deficiency related diffuse (endemic) goiter; F43.21 Adjustment disorder with depressed mood; E78.2 Mixed hyperlipidemia; D50.9 Iron deficiency anemia, unspecified
CPT/HCPCS: 36415; 80061; 82728; 83540; 83721; 84443; 84466; 85025; 85651; 86140

== ENCOUNTER 2019-06-30 08:00 | Outpatient (CLI) | payer OTHER ==
[2019-06-30 19:11] LABS: BASOPHILS % (AUTO) 0.6 %; EOSINOPHILS # (AUTO) 0.1 10^3/uL (0.0-0.7); EOSINOPHILS % (AUTO) 1.9 %; HGB - HEMOGLOBIN 13.5 g/dL (12.0-16.0); LYMPHOCYTES # (AUTO) 1.6 10^3/uL (1.5-3.5); LYMPHOCYTES % (AUTO) 25.3 %; MEAN CORPUSCULAR HEMOGLOBIN 30.3 pg (27.0-31.0); MEAN CORPUSCULAR HGB CONC 32.8 g/dL (32.0-36.0); MEAN CORPUSCULAR VOLUME 92.4 fL (81.0-99.0); MEAN PLATELET VOLUME 11.3 fL (7.9-10.8); MONOCYTES # (AUTO) 0.5 10^3/uL (0.0-1.0); MONOCYTES % (AUTO) 7.2 %; NEUTROPHILS # (AUTO) 4.1 10^3/uL (1.5-6.6); NEUTROPHILS % (AUTO) 64.4 %; PLT - PLATELET COUNT 320 10^3/uL (130-450); RED BLOOD COUNT 4.46 10^6/uL (4.20-5.40); RED CELL DISTRIBUTION WIDTH 12.6 % (12.0-15.0); WHITE BLOOD COUNT 6.4 x10^3/uL (4.8-10.8)
[2019-06-30 19:43] LABS: ALBUMIN 4.3 g/dL (3.2-5.5); ALBUMIN/GLOBULIN RATIO 1.2 (1.0-2.2); BILIRUBIN,TOTAL 0.6 mg/dL (0.2-1.0); CALCIUM 9.2 mg/dL (8.5-10.3); CREATININE 0.6 mg/dL (0.4-1.0)
== END 2019-06-30 23:59 | disposition home or self-care (01) ==
LOC: LAB.WCP 08:00
PROVIDERS: ATTEND Family Medicine
DX: R51 Headache (principal)
CPT/HCPCS: 36415; 80053; 84702; 85025

== ENCOUNTER 2019-11-05 15:48 | Outpatient (CLI) | payer OTHER ==
--- NOTE | 2019-11-06 10:10 | Mammography Report ---
Reason: ROUTINE MAMMO Procedure Date: 11/05/2019 Accession Number: [id number] / [id number] Procedure: RICHA - Screening Mammo w/Isac CPT Code: Final Report FULL RESULT: EXAM: Screening Mammo w/Isac DATE: 11/05/2019 4:20 PM CLINICAL HISTORY: Screening encounter. History of benign right and left breast excisional biopsies with negative pathology and right and left breast core biopsies with clip placement in 2018, also negative pathology. TECHNIQUE: (B) - Bilateral CC and MLO views were obtained. COMPARISON: 06/24/2018 through 11/12/2012. PARENCHYMAL PATTERN: (D) - The breast(s) demonstrate(s) heterogeneously dense fibroglandular parenchyma. FINDINGS: Bilateral postsurgical changes are again seen including bilateral isodense well-circumscribed nodules which have not significantly changed, known history of bilateral multiple fibroadenomas without suspicious interval change, typically benign. The previously seen biopsy marker clips, 2 on the right and one on the left are no longer seen. Interval development of bilateral postsurgical changes, typically benign appearance. There are no suspicious masses, calcifications, or areas of distortion. IMPRESSION: Benign findings. BI-RADS category 2. RECOMMENDATION: (ANNUAL) - Recommend routine annual screening mammography. BI-RADS CATEGORY: (2) - Benign Findings. STANDARD QUALIFYING STATEMENTS: 1. This examination was not reviewed with the aid of Computer-Aided Detection (CAD). 2. A negative or benign imaging report should not preclude biopsy if clinically suspicious findings are present. 3. Dense breasts may obscure an underlying neoplasm. 4. This examination was reviewed with the aid of 3D breast imaging (tomosynthesis).
== END 2019-11-05 15:49 | disposition home or self-care (01) ==
LOC: DI 15:48
PROVIDERS: ATTEND Obstetrics & Gynecology
DX: Z12.31 Encounter for screening mammogram for malignant neoplasm of breast (principal)
CPT/HCPCS: 77063; 77067

== ENCOUNTER 2020-04-16 10:00 | Outpatient (CLI) | payer OTHER | END 2020-04-16 23:59 | disposition home or self-care (01) | LOC: LAB.R 10:00 | PROVIDERS: ATTEND Obstetrics & Gynecology | DX: N76.4 Abscess of vulva (principal) | CPT/HCPCS: 87070; 87077; 87181; 87205 ==

== ENCOUNTER 2020-05-28 13:09 | Outpatient (CLI) | payer OTHER | END 2020-05-28 13:10 | disposition home or self-care (01) | LOC: COV 13:09 | PROVIDERS: ATTEND Family Medicine | DX: R50.9 Fever, unspecified (principal); R53.83 Other fatigue; R09.81 Nasal congestion; Z20.828 Contact with and (suspected) exposure to other viral communicable diseases ==

== ENCOUNTER 2020-06-22 08:00 | Outpatient (CLI) | payer OTHER ==
[2020-06-22 12:16] LABS: BASOPHILS % (AUTO) 0.6 %; EOSINOPHILS # (AUTO) 0.1 10^3/uL (0.0-0.7); EOSINOPHILS % (AUTO) 2.5 %; LYMPHOCYTES # (AUTO) 1.4 10^3/uL (1.5-3.5); MEAN CORPUSCULAR HEMOGLOBIN 30.8 pg (27.0-31.0); MEAN CORPUSCULAR HGB CONC 32.9 g/dL (32.0-36.0); MEAN CORPUSCULAR VOLUME 93.4 fL (81.0-99.0); MEAN PLATELET VOLUME 12.2 fL (7.9-10.8); MONOCYTES # (AUTO) 0.4 10^3/uL (0.0-1.0); MONOCYTES % (AUTO) 7.7 %; NEUTROPHILS # (AUTO) 3.2 10^3/uL (1.5-6.6); NEUTROPHILS % (AUTO) 61.8 %; PLT - PLATELET COUNT 294 10^3/uL (130-450); RED BLOOD COUNT 4.55 10^6/uL (4.20-5.40); RED CELL DISTRIBUTION WIDTH 12.5 % (12.0-15.0); WHITE BLOOD COUNT 5.2 x10^3/uL (4.8-10.8)
[2020-06-22 12:20] LABS: ALBUMIN 4.4 g/dL (3.2-5.5); ALBUMIN/GLOBULIN RATIO 1.3 (1.0-2.2); ALKALINE PHOSPHATASE 65 IU/L (42-121); ALT ALANINE AMINOTRANSFERASE 22 IU/L (10-60); AST ASPARTATE AMINOTRANSFERASE 15 IU/L (10-42); BILIRUBIN,TOTAL 0.7 mg/dL (0.2-1.0); BUN - BLOOD UREA NITROGEN 8 mg/dL (6-20); CALCIUM 9.2 mg/dL (8.5-10.3); CARBON DIOXIDE - CO2 27 mmol/L (21-32); CHLORIDE 100 mmol/L (101-111); CHOL/HDL RATIO 3.2 (<4.4); CHOLESTEROL 129 mg/dL; CREATININE 0.7 mg/dL (0.4-1.0); GLUCOSE 91 mg/dL (70-100); HDL CHOLESTEROL 40 mg/dL; LDL CHOLESTEROL,CALCULATED 66 mg/dL; LDL/HDL RATIO 1.7 (<4.4); SODIUM 136 mmol/L (135-145); TOTAL PROTEIN 7.8 g/dL (6.7-8.2); VLDL CHOLESTEROL 23 mg/dL
[2020-06-22 12:42] LABS: HEMOGLOBIN A1c% 5.2 % (4.27-6.07)
== END 2020-06-22 23:59 | disposition home or self-care (01) ==
LOC: LAB.WCP 08:00
PROVIDERS: ATTEND Physician Assistant
DX: Z00.00 Encounter for general adult medical examination without abnormal findings (principal); E78.49 Other hyperlipidemia
CPT/HCPCS: 36415; 80053; 80061; 83036; 83721; 84443; 85025

== ENCOUNTER 2020-08-18 09:02 | Outpatient (CLI) | payer OTHER | END 2020-08-18 09:03 | disposition home or self-care (01) | LOC: DI 09:02 | PROVIDERS: ATTEND Physician Assistant | DX: I10 Essential (primary) hypertension (principal) | CPT/HCPCS: 93306 ==

== ENCOUNTER 2020-09-06 12:19 | Outpatient (CLI) | payer OTHER | END 2020-09-06 12:20 | disposition home or self-care (01) | LOC: COV 12:19 | PROVIDERS: ATTEND Family Medicine | DX: R06.02 Shortness of breath (principal); J02.9 Acute pharyngitis, unspecified; R19.7 Diarrhea, unspecified; R09.81 Nasal congestion; R11.2 Nausea with vomiting, unspecified; Z20.828 Contact with and (suspected) exposure to other viral communicable diseases ==

== ENCOUNTER 2020-10-20 08:00 | Outpatient (CLI) | payer OTHER | END 2020-10-20 08:01 | disposition home or self-care (01) | LOC: LAB.N 08:00 | PROVIDERS: ATTEND Family Medicine | DX: M79.661 Pain in right lower leg (principal) | CPT/HCPCS: 36415; 85379 ==

== ENCOUNTER 2020-11-04 07:56 | Outpatient (CLI) | payer OTHER | END 2020-11-04 07:57 | disposition home or self-care (01) | LOC: COV 07:56 | PROVIDERS: ATTEND Family Medicine | DX: U07.1 COVID-19 (principal) ==

== ENCOUNTER 2021-06-24 08:00 | Outpatient (CLI) | payer OTHER ==
[2021-06-24 13:37] LABS: BASOPHILS # (AUTO) 0.1 10^3/uL (0.0-0.1); BASOPHILS % (AUTO) 1.1 %; EOSINOPHILS # (AUTO) 0.2 10^3/uL (0.0-0.7); EOSINOPHILS % (AUTO) 4.1 %; HCT - HEMATOCRIT 42.7 % (37.0-47.0); HGB - HEMOGLOBIN 13.9 g/dL (12.0-16.0); LYMPHOCYTES # (AUTO) 1.4 10^3/uL (1.5-3.5); LYMPHOCYTES % (AUTO) 29.4 %; MEAN CORPUSCULAR HEMOGLOBIN 30.7 pg (27.0-31.0); MEAN CORPUSCULAR HGB CONC 32.6 g/dL (32.0-36.0); MEAN CORPUSCULAR VOLUME 94.3 fL (81.0-99.0); MEAN PLATELET VOLUME 11.4 fL (7.9-10.8); MONOCYTES # (AUTO) 0.3 10^3/uL (0.0-1.0); MONOCYTES % (AUTO) 7.2 %; NEUTROPHILS # (AUTO) 2.7 10^3/uL (1.5-6.6); NEUTROPHILS % (AUTO) 57.8 %; PLT - PLATELET COUNT 300 10^3/uL (130-450); RED BLOOD COUNT 4.53 10^6/uL (4.20-5.40); RED CELL DISTRIBUTION WIDTH 12.1 % (12.0-15.0); WHITE BLOOD COUNT 4.6 x10^3/uL (4.8-10.8)
[2021-06-24 14:05] LABS: THYROID STIMULATING HORMONE 2.09 uIU/mL (0.34-5.60)
[2021-06-24 14:07] LABS: ALBUMIN 4.2 g/dL (3.2-5.5); ALBUMIN/GLOBULIN RATIO 1.1 (1.0-2.2); ALKALINE PHOSPHATASE 53 IU/L (42-121); ALT ALANINE AMINOTRANSFERASE 19 IU/L (10-60); AST ASPARTATE AMINOTRANSFERASE 16 IU/L (10-42); BILIRUBIN,TOTAL 0.5 mg/dL (0.2-1.0); BUN - BLOOD UREA NITROGEN 12 mg/dL (6-20); CALCIUM 9.3 mg/dL (8.5-10.3); CARBON DIOXIDE - CO2 27 mmol/L (21-32); CHLORIDE 100 mmol/L (101-111); CHOL/HDL RATIO 5.2 (<4.4); CHOLESTEROL 261 mg/dL; CREATININE 0.7 mg/dL (0.4-1.0); GFR - MDRD 92 (>89); GLUCOSE 89 mg/dL (70-100); HDL CHOLESTEROL 50 mg/dL; LDL CHOLESTEROL,CALCULATED 173 mg/dL; LDL/HDL RATIO 3.5 (<4.4); POTASSIUM 3.9 mmol/L (3.5-5.0); SODIUM 138 mmol/L (135-145); TOTAL PROTEIN 8.1 g/dL (6.7-8.2); TRIGLYCERIDES 191 mg/dL; VLDL CHOLESTEROL 38 mg/dL
== END 2021-06-24 23:59 | disposition home or self-care (01) ==
LOC: LAB.WCP 08:00
PROVIDERS: ATTEND Physician Assistant Medical
DX: Z00.00 Encounter for general adult medical examination without abnormal findings (principal); E78.49 Other hyperlipidemia; D50.9 Iron deficiency anemia, unspecified
CPT/HCPCS: 36415; 80053; 80061; 83721; 84443; 85025

== ENCOUNTER 2021-09-07 08:00 | Outpatient (CLI) | payer OTHER | END 2021-09-07 23:59 | LOC: LAB 08:00 | PROVIDERS: ATTEND Family Medicine | DX: R52 Pain, unspecified (principal); R68.83 Chills (without fever); Z20.822 Contact with and (suspected) exposure to COVID-19 ==

== ENCOUNTER 2021-09-14 08:00 | Outpatient (CLI) | payer OTHER | END 2021-09-14 23:59 | disposition home or self-care (01) | LOC: LAB.WCP 08:00 | PROVIDERS: ATTEND Family Medicine | DX: J34.89 Other specified disorders of nose and nasal sinuses (principal); Z20.822 Contact with and (suspected) exposure to COVID-19 ==

== ENCOUNTER 2021-12-26 07:39 | Outpatient (CLI) | payer OTHER ==
[2021-12-26 12:34] LABS: CHOL/HDL RATIO 5.4 (<4.4); CHOLESTEROL 295 mg/dL; HDL CHOLESTEROL 55 mg/dL; LDL CHOLESTEROL,CALCULATED 205 mg/dL; LDL/HDL RATIO 3.7 (<4.4); TRIGLYCERIDES 176 mg/dL; VLDL CHOLESTEROL 35 mg/dL
== END 2021-12-26 07:40 | disposition home or self-care (01) ==
LOC: LAB.N 07:39
PROVIDERS: ATTEND Physician Assistant Medical
DX: E78.2 Mixed hyperlipidemia (principal)
CPT/HCPCS: 36415; 80061; 83721

== ENCOUNTER 2022-02-07 16:22 | Outpatient (CLI) | payer OTHER ==
--- NOTE | 2022-02-07 17:07 | XRAY Report ---
PROCEDURE: Knee 4 View LT INDICATIONS: L KNEE PX TECHNIQUE: 4 views of the left knee(s) were acquired. COMPARISON: None. FINDINGS: BONES/JOINT: No acute, displaced fracture or dislocation. Small suprapatellar joint effusion. SOFT TISSUES: No significant abnormality. IMPRESSION: 1.No acute osseous abnormality. Reviewed by: Bao Black MD on 02/07/2022 5:05 PM PDT Approved by: Bao Black MD on 02/07/2022 5:05 PM PDT Station ID: [id number]
== END 2022-02-07 16:23 | disposition home or self-care (01) ==
LOC: DI.N 16:22
PROVIDERS: ATTEND Nurse Practitioner
DX: M25.562 Pain in left knee (principal)

== ENCOUNTER 2022-06-12 12:38 | Outpatient (CLI) | payer OTHER | END 2022-06-12 12:39 | disposition critical access hospital (66) | LOC: EMS 12:38 | DX: R06.02 Shortness of breath (principal) | CPT/HCPCS: A0425; A0429 ==

== ENCOUNTER 2022-06-12 13:01 | Emergency (ER) | payer OTHER ==
[2022-06-12] MEDS ORDERED: diphenhydrAMINE INJ 50 MG/ML VIAL IVP STA (13:09)
[2022-06-12] MEDS ORDERED: methylPREDNISolone SUCCINATE 125 MG/2 ML VIAL IVP STA (13:09)
[2022-06-12] MEDS ORDERED: SODIUM CHLORIDE 0.9% 1,000 ML IV STA ×3 (13:09→15:50)
[2022-06-12] MEDS ORDERED: PROMETHAZINE INJ 25 MG in SODIUM CHLORIDE 0.9% 50 ML IV STA (13:10)
--- NOTE | 2022-06-12 13:15 | ED Physician Documentation ---
History of Present Illness - Stated complaint Stated Complaint: DIZZY/SOA - History obtained from History obtained from: Patient - History of Present Illness Pain level max: 0 Pain level now: 0 - Additonal information Additional information: Patient is a 41-year-old female, recently underwent a double mastectomy for breast cancer. This is about 3 weeks ago. 2 to 3 days ago began to have some difficulty breathing. She states it feels like it is difficult for her to take a full breath. She does not have any chest pain necessarily although occasionally some sharp pain to the left upper chest. She has felt weak and dizzy as well. Her heart rate has been elevated. She went to the walk-in clinic today and was sent here for further evaluation. Patient is not on any new medications. Seems to be is worse with standing and walking. Decreased appetite recently. Review of Systems Ten Systems: 10 systems reviewed and negative Constitutional: denies: Fever, Chills Throat: denies: Sore throat Cardiac: reports: Palpitations. 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 TENDER: Breast cancer : None HEENT: None Psych: None Musculoskeletal: None Derm: None - Past Surgical History Past Surgical History: Yes /BIRD TENDER: section, Dilation and currettage, Tubal ligation, Mastectomy, LEEP (Cervical surgery), Other (Bilateral mastectomy May 2022) - Present Medications Home Medications: Ambulatory Orders Medication Instructions Recorded Confirmed Rosuvastatin Calcium [Crestor] 5 mg PO DAILY 04/13/22 06/04/22 Multivitamin 1 each PO DAILY 06/04/22 06/04/22 Ondansetron Odt [Zofran Odt] 4 mg TL Q6H PRN 06/04/22 06/04/22 oxyCODONE [Roxicodone] 5 mg PO Q4HR MDD pain 06/04/22 06/04/22 Amox/Clav 875/125 [Augmentin] 1 tab PO Q12H #20 tablet 06/12/22 Propranolol HCl 20 mg PO BID #60 tablet 06/12/22 - Allergies Allergies/Adverse Reactions: Allergies Allergy/AdvReac Type Severity Reaction Status Date / Time iodine Allergy Severe Respiratory Verified 06/04/22 18:43 naproxen Allergy Unknown unknown Verified 06/04/22 18:43 doxycyccline Allergy Unknown unknown Uncoded 05/31/18 21:08 - Social History Does the pt smoke?: No Smoking Status: Never smoker Does the pt drink ETOH?: No Does the pt have substance abuse?: No - Immunizations Immunizations are current?: Yes - POLST Patient has POLST: No PD ED PE NORMAL - Vitals Vital signs reviewed: Yes - General General: Alert and oriented X 3, No acute distress - HEENT HEENT: Moist mucous membranes - Neck Neck: Supple, no meningeal sign - Cardiac Cardiac: Strong equal pulses, Other (tachycardia) - Respiratory Respiratory: No respiratory distress, Clear bilaterally, Other (Chest wall incisions are clean dry and intact without signs of infection.) - Abdomen Abdomen: Soft, Non tender, Non distended - Back Back: No CVA TTP, No spinal TTP - Derm Derm: Warm and dry, No rash - Extremities Extremities: No edema, No calf tenderness / cord - Neuro Neuro: Alert and oriented X 3, horse show judge 2-12 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, No motor deficit, No sensory deficit, Normal speech Eye Opening: Spontaneous Motor: Obeys Commands Verbal: Oriented GCS Score: 15 - Psych Psych: Normal mood, Normal affect Results - Vitals Vitals: Vital Signs - 24 hr 06/12/22 06/12/22 06/12/22 13:13 13:30 14:58 Temperature 37.8 C 36.5 C Heart Rate 114 H 108 H 95 Heart Rate [ Sitting] Heart Rate [ Standing] Heart Rate [ Supine] Respiratory 16 22 20 Rate Blood Pressure 158/97 H 150/100 H 135/88 H Blood Pressure [Sitting] Blood Pressure [Standing] Blood Pressure [Supine] O2 Saturation 100 100 98 06/12/22 06/12/22 06/12/22 15:00 15:30 16:00 Temperature Heart Rate 97 101 H 94 Heart Rate [ Sitting] Heart Rate [ Standing] Heart Rate [ Supine] Respiratory 20 20 20 Rate Blood Pressure 133/85 H 133/84 H 146/84 H Blood Pressure [Sitting] Blood Pressure [Standing] Blood Pressure [Supine] O2 Saturation 99 99 99 06/12/22 06/12/22 06/12/22 16:30 17:00 17:30 Temperature Heart Rate 89 94 93 Heart Rate [ Sitting] Heart Rate [ Standing] Heart Rate [ Supine] Respiratory 18 20 18 Rate Blood Pressure 143/84 H 150/100 H 139/89 H Blood Pressure [Sitting] Blood Pressure [Standing] Blood Pressure [Supine] O2 Saturation 97 98 98 06/12/22 06/12/22 06/12/22 18:00 18:30 19:00 Temperature Heart Rate 92 99 108 H Heart Rate [ Sitting] Heart Rate [ Standing] Heart Rate [ Supine] Respiratory 18 18 22 Rate Blood Pressure 132/82 H 135/87 H 141/97 H Blood Pressure [Sitting] Blood Pressure [Standing] Blood Pressure [Supine] O2 Saturation 98 99 98 06/12/22 06/12/22 06/12/22 19:14 19:30 20:00 Temperature Heart Rate 97 98 Heart Rate [ 106 H Sitting] Heart Rate [ 118 H Standing] Heart Rate [ 102 H Supine] Respiratory 16 14 Rate Blood Pressure 141/97 H 144/96 H Blood Pressure 135/84 H [Sitting] Blood Pressure 147/100 H [Standing] Blood Pressure 135/77 H [Supine] O2 Saturation 97 98 06/12/22 06/12/22 20:30 20:42 Temperature Heart Rate 93 93 Heart Rate [ Sitting] Heart Rate [ Standing] Heart Rate [ Supine] Respiratory 16 16 Rate Blood Pressure 144/96 H 144/96 H Blood Pressure [Sitting] Blood Pressure [Standing] Blood Pressure [Supine] O2 Saturation 96 98 Oxygen O2 Source Room air - EKG (time done) 1310 Rate: Rate (enter#) (110) Rhythm: Sinus tachycardia [place]: Normal Intervals: Normal [place] QRS: Normal Ischemia: Non specific changes - Labs Labs: Laboratory Tests 06/12/22 06/12/22 06/12/22 13:21 13:21 17:49 WBC 10.5 RBC 4.63 Hgb 14.2 Hct 42.3 MCV 91.4 MCH 30.7 MCHC 33.6 RDW 12.6 Plt Count 355 MPV 10.8 Neut # (Auto) 8.7 H Lymph # (Auto) 1.2 L Dade # (Auto) 0.4 Eos # (Auto) 0.0 Baso # (Auto) 0.0 Absolute Nucleated RBC 0.00 Nucleated RBC % 0.0 Sodium 139 Potassium 3.4 L Chloride 102 Carbon Dioxide 22 Anion Gap 15.0 H BUN 13 Creatinine 0.6 Estimated GFR (MDRD) 109 Glucose 100 Calcium 10.0 Phosphorus 3.6 Magnesium 2.3 Total Bilirubin 0.8 AST 24 ALT 24 Alkaline Phosphatase 94 Total Protein 9.3 H Albumin 5.1 Globulin 4.2 Albumin/Globulin Ratio 1.2 Lipase 28 Urine Color YELLOW Urine Clarity CLEAR Urine pH 7.0 Ur Specific [place] 1.015 Urine Protein NEGATIVE Urine Glucose (UA) NEGATIVE Urine Ketones NEGATIVE Urine Occult Blood NEGATIVE Urine Nitrite NEGATIVE Urine Bilirubin NEGATIVE Urine Urobilinogen 0.2 (NORMAL) Ur Leukocyte Esterase NEGATIVE Ur Microscopic Review NOT INDICATED Urine Culture Comments NOT INDICATED - Rads (name of study) CTA chest Radiology: Final report received, EMP read contemporaneously, See rad report (no acute abnormality, no PE) PD MEDICAL DECISION MAKING - ED course Complexity details: reviewed old records, reviewed results, re-evaluated patient, considered differential, d/w patient ED course: 41-year-old female status post bilateral mastectomy. Initial concern was for potential pulmonary embolus. CT pulmonary angiogram is negative. Heart rate did decrease with IV fluids, blood pressure was stable but still became tachycardic with standing. Possible POTS syndrome? She was given a dose of propanolol to see if this would help her symptoms of dizziness, this did seem to help her tachycardia and did seem to resolve her dizziness as well. Blood pressure remained normal. We will have her follow-up with her doctor for further care. She was also complaining of sinus drainage, blood in the mucus when she blew her nose and sinus pressure. We will treat her for a sinus infection as well. She will follow-up closely with her doctor for further care. Patient counseled regarding signs and symptoms for which I believe and urgent re-evaluation would be necessary. Patient with good understanding of and agreement to plan and is comfortable going home at this time This document was made in part using voice recognition software. While efforts are made to proofread this document, sound alike and grammatical errors may occur. Departure - Departure Disposition: 01 Home, Self Care Clinical Impression: Tachycardia, Dizziness, POTS (postural orthostatic tachycardia syndrome) Sinusitis Qualifiers: Sinusitis location: unspecified location Chronicity: acute Recurrence: non- recurrent Qualified Code(s): J01.90 - Acute sinusitis, unspecified Condition: Good Instructions: ED Near Syncope Unkn Follow-Up: Della Adam PA-C [Primary Care Provider] - Within 1 week Prescriptions: Amox/Clav 875/125 [Augmentin] 1 tab PO Q12H #20 tablet Propranolol HCl 20 mg PO BID #60 tablet Comments: Please follow-up with your doctor for further care. Your prescriptions were sent to [facility] in [place]. Please return if you worsen. Your testing tonight does not show any acute abnormalities.
[2022-06-12 13:27] LABS: BASOPHILS % (AUTO) 0.4 %; EOSINOPHILS % (AUTO) 0.4 %; HCT - HEMATOCRIT 42.3 % (37.0-47.0); HGB - HEMOGLOBIN 14.2 g/dL (12.0-16.0); LYMPHOCYTES # (AUTO) 1.2 10^3/uL (1.5-3.5); LYMPHOCYTES % (AUTO) 11.5 %; MEAN CORPUSCULAR HEMOGLOBIN 30.7 pg (27.0-31.0); MEAN CORPUSCULAR HGB CONC 33.6 g/dL (32.0-36.0); MEAN CORPUSCULAR VOLUME 91.4 fL (81.0-99.0); MEAN PLATELET VOLUME 10.8 fL (7.9-10.8); MONOCYTES # (AUTO) 0.4 10^3/uL (0.0-1.0); MONOCYTES % (AUTO) 4.1 %; NEUTROPHILS # (AUTO) 8.7 10^3/uL (1.5-6.6); NEUTROPHILS % (AUTO) 83.2 %; PLT - PLATELET COUNT 355 10^3/uL (130-450); RED BLOOD COUNT 4.63 10^6/uL (4.20-5.40); RED CELL DISTRIBUTION WIDTH 12.6 % (12.0-15.0); WHITE BLOOD COUNT 10.5 x10^3/uL (4.8-10.8)
[2022-06-12 13:41] LABS: ALBUMIN 5.1 g/dL (3.2-5.5); ALBUMIN/GLOBULIN RATIO 1.2 (1.0-2.2); BILIRUBIN,TOTAL 0.8 mg/dL (0.2-1.0); CREATININE 0.6 mg/dL (0.4-1.0); MAGNESIUM 2.3 mg/dL (1.7-2.8); PHOSPHORUS 3.6 mg/dL (2.5-4.6); POTASSIUM 3.4 mmol/L (3.5-5.0); TOTAL PROTEIN 9.3 g/dL (6.7-8.2)
--- NOTE | 2022-06-12 14:39 | CT Report ---
PROCEDURE: ANGIO CHEST W/WO INDICATIONS: tachycardia, dyspnea 3 weeks post op CONTRAST: IV CONTRAST: Optiray 320 ml: 80 PO CONTRAST: *NO PO CONTRAST TECHNIQUE: After the administration of intravenous contrast, 2 mm axial images were acquired from the pulmonary apices to the posterior costophrenic angles during the arterial phase. In addition, 1 mm lung kernel and 5 mm soft tissue kernel reconstructions were performed. 3-dimensional coronal oblique maximum int ensity projection (MIP) reformats, 8 mm axial MIP, and 5 mm coronal and sagittal MPR reformats were t hen performed through the thorax. For radiation dose reduction, the following was used: automated exp osure control, adjustment of mA and/or kV according to patient size. COMPARISON: Chest radiograph 06/04/2022 FINDINGS: Image quality: There is suboptimal opacification of the pulmonary arteries. Pulmonary arteries: Pulmonary arteries are normal in size, and demonstrate no intraluminal filling d efects to suggest central pulmonary embolism. Lungs and pleura: Lungs are clear. No pleural effusions or pneumothorax. Central and peripheral ai rways are patent. Mediastinum: Heart size is normal, without pericardial effusion. No mediastinal or hilar adenopathy . Thoracic aorta is normal in caliber and enhancement. Esophagus is normal in caliber, without hiat al hernia. Bones and chest wall: No suspicious bony lesions. Mild degenerative changes in the spine. No axilla ry or supraclavicular adenopathy. The thyroid is normal in size. Abdomen: Visualized upper abdominal solid organs appear normal in the early arterial phase of enhanc ement. IMPRESSION: 1.No acute central pulmonary embolus. However, there is subtotal opacification of the pulmonary arter ies, and a small segmental or subsegmental pulmonary embolus could be missed. 2.No acute abnormality identified in chest. Reviewed by: Nick Swann MD on 06/12/2022 1:37 PM SERENE Approved by: Nick Swann MD on 06/12/2022 1:37 PM SERENE Station ID: [id number]
[2022-06-12] MEDS ORDERED: AMOX/CLAV 875 MG/125 MG TABLET PO STA (17:04)
[2022-06-12] MEDS ORDERED: MECLIZINE 12.5 MG TABLET PO STA (18:03)
[2022-06-12 18:34] LABS: BILIRUBIN,URINE NEGATIVE (NEGATIVE); GLUCOSE, URINE (UA) NEGATIVE (NEGATIVE); KETONES,URINE (UA) NEGATIVE (NEGATIVE); LEUKOCYTE ESTERASE, URINE NEGATIVE (NEGATIVE); NITRITE,URINE NEGATIVE (NEGATIVE); OCCULT BLOOD,URINE NEGATIVE (NEGATIVE); PROTEIN,URINE NEGATIVE (NEGATIVE); UROBILINOGEN,URINE 0.2 (NORMAL) E.U./dL (NORMAL)
[2022-06-12 18:36] LABS: CLARITY,URINE CLEAR (CLEAR)
[2022-06-12] MEDS ORDERED: PROPRANOLOL 10 MG TABLET PO STA (19:41)
[2022-06-12 20:10] VITALS: BP 144/96
== END 2022-06-12 21:04 | disposition home or self-care (01) ==
LOC: EDUNIT# → ED 13:01
DX: R00.0 Tachycardia, unspecified (principal); J01.90 Acute sinusitis, unspecified; I49.8 Other specified cardiac arrhythmias
CPT/HCPCS: 36415; 71275; 80053; 81003; 83690; 83735; 84100; 85025; 93005; 96361; 96365; 96366; 96375; 99284; A9270; J1200; J7040; Q9967; 81001; 87086

== ENCOUNTER 2022-06-20 11:20 | Outpatient (CLI) | payer OTHER ==
[2022-06-20 18:03] LABS: BASOPHILS % (AUTO) 0.7 %; EOSINOPHILS # (AUTO) 0.1 10^3/uL (0.0-0.7); EOSINOPHILS % (AUTO) 1.8 %; HCT - HEMATOCRIT 42.1 % (37.0-47.0); HGB - HEMOGLOBIN 13.9 g/dL (12.0-16.0); LYMPHOCYTES # (AUTO) 1.6 10^3/uL (1.5-3.5); LYMPHOCYTES % (AUTO) 26.8 %; MEAN CORPUSCULAR HEMOGLOBIN 30.5 pg (27.0-31.0); MEAN CORPUSCULAR VOLUME 92.5 fL (81.0-99.0); MEAN PLATELET VOLUME 11.1 fL (7.9-10.8); MONOCYTES # (AUTO) 0.4 10^3/uL (0.0-1.0); NEUTROPHILS # (AUTO) 3.8 10^3/uL (1.5-6.6); NEUTROPHILS % (AUTO) 62.9 %; PLT - PLATELET COUNT 348 10^3/uL (130-450); RED BLOOD COUNT 4.55 10^6/uL (4.20-5.40); RED CELL DISTRIBUTION WIDTH 12.7 % (12.0-15.0)
[2022-06-20 18:25] LABS: ALBUMIN 4.6 g/dL (3.2-5.5); ALBUMIN/GLOBULIN RATIO 1.3 (1.0-2.2); BILIRUBIN,TOTAL 0.7 mg/dL (0.2-1.0); CALCIUM 9.9 mg/dL (8.5-10.3); CREATININE 0.6 mg/dL (0.4-1.0); TOTAL PROTEIN 8.2 g/dL (6.7-8.2)
[2022-06-20 18:43] LABS: THYROID STIMULATING HORMONE 1.14 uIU/mL (0.34-5.60)
== END 2022-06-20 11:21 | disposition home or self-care (01) ==
LOC: LAB.N 11:20
PROVIDERS: ATTEND Nurse Practitioner
DX: I10 Essential (primary) hypertension (principal); R06.02 Shortness of breath; R00.0 Tachycardia, unspecified
CPT/HCPCS: 36415; 80053; 83880; 84443; 85025

== ENCOUNTER 2022-07-12 08:23 | Outpatient (CLI) | payer OTHER ==
[2022-07-12 12:27] LABS: CHOL/HDL RATIO 3.7 (<4.4); CHOLESTEROL 168 mg/dL; HDL CHOLESTEROL 45 mg/dL; LDL CHOLESTEROL,CALCULATED 86 mg/dL; LDL/HDL RATIO 1.9 (<4.4); TRIGLYCERIDES 185 mg/dL; VLDL CHOLESTEROL 37 mg/dL
== END 2022-07-12 08:24 | disposition home or self-care (01) ==
LOC: LAB.N 08:23
PROVIDERS: ATTEND Physician Assistant Medical
DX: E78.2 Mixed hyperlipidemia (principal)
CPT/HCPCS: 36415; 80061; 83721

== ENCOUNTER 2022-10-03 16:37 | Emergency (ER) | payer OTHER ==
[2022-10-03 17:05] LABS: BILIRUBIN,URINE NEGATIVE (NEGATIVE); GLUCOSE, URINE (UA) NEGATIVE (NEGATIVE); KETONES,URINE (UA) NEGATIVE (NEGATIVE); LEUKOCYTE ESTERASE, URINE NEGATIVE (NEGATIVE); NITRITE,URINE NEGATIVE (NEGATIVE); OCCULT BLOOD,URINE NEGATIVE (NEGATIVE); PROTEIN,URINE NEGATIVE (NEGATIVE); UROBILINOGEN,URINE 0.2 (NORMAL) E.U./dL (NORMAL)
[2022-10-03 17:07] LABS: CLARITY,URINE CLEAR (CLEAR); HCG UR QUAL NEGATIVE
[2022-10-03 17:08] LABS: BASOPHILS # (AUTO) 0.1 10^3/uL (0.0-0.1); BASOPHILS % (AUTO) 0.6 %; EOSINOPHILS # (AUTO) 0.2 10^3/uL (0.0-0.7); EOSINOPHILS % (AUTO) 2.3 %; HCT - HEMATOCRIT 41.9 % (37.0-47.0); LYMPHOCYTES # (AUTO) 2.2 10^3/uL (1.5-3.5); LYMPHOCYTES % (AUTO) 28.2 %; MEAN CORPUSCULAR HEMOGLOBIN 30.1 pg (27.0-31.0); MEAN CORPUSCULAR HGB CONC 33.4 g/dL (32.0-36.0); MEAN CORPUSCULAR VOLUME 90.1 fL (81.0-99.0); MEAN PLATELET VOLUME 10.6 fL (7.9-10.8); MONOCYTES # (AUTO) 0.6 10^3/uL (0.0-1.0); MONOCYTES % (AUTO) 7.7 %; NEUTROPHILS # (AUTO) 4.8 10^3/uL (1.5-6.6); NEUTROPHILS % (AUTO) 60.8 %; PLT - PLATELET COUNT 313 10^3/uL (130-450); RED BLOOD COUNT 4.65 10^6/uL (4.20-5.40); RED CELL DISTRIBUTION WIDTH 12.6 % (12.0-15.0); WHITE BLOOD COUNT 7.8 x10^3/uL (4.8-10.8)
[2022-10-03 17:20] LABS: ALBUMIN 4.3 g/dL (3.2-5.5); ALBUMIN/GLOBULIN RATIO 1.1 (1.0-2.2); BILIRUBIN,TOTAL 0.7 mg/dL (0.2-1.0); CALCIUM 9.5 mg/dL (8.5-10.3); CREATININE 0.7 mg/dL (0.4-1.0); TOTAL PROTEIN 8.3 g/dL (6.7-8.2)
--- NOTE | 2022-10-03 17:56 | ED Physician Documentation ---
History of Present Illness - Stated complaint Stated Complaint: RT SIDE ABD PX - Chief complaint Chief Complaint: Abd Pain - History obtained from History obtained from: Patient - History of Present Illness Pain level max: 5 Pain level now: 0 - Additonal information Additional information: Patient is a 41-year-old female who presents the emergency department right- sided abdominal pain for the past 4 days. Intermittent. Can last for a few minutes to a few hours. Has been nauseated for the last 2 weeks. She has been taking Zofran and has been having constipation. No fevers. No chills. No vomiting. Nothing seems to make it better. It is worse with eating and drinking. 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: Breast cancer : None HEENT: None Psych: None Musculoskeletal: None Derm: None - Past Surgical History Past Surgical History: Yes /BREAD MOLDER: section, Dilation and currettage, Tubal ligation, Mastectomy, LEEP (Cervical surgery), Other (Bilateral mastectomy May 2022) - Present Medications Home Medications: Ambulatory Orders Medication Instructions Recorded Confirmed Rosuvastatin Calcium [Crestor] 5 mg PO DAILY 04/13/22 07/03/22 Multivitamin 1 each PO DAILY 06/04/22 07/03/22 Ondansetron Odt [Zofran Odt] 4 mg TL Q6H PRN 06/04/22 07/03/22 oxyCODONE [Roxicodone] 5 mg PO Q4HR MDD pain 06/04/22 07/03/22 Amox/Clav 875/125 [Augmentin] 1 tab PO Q12H #20 tablet 06/12/22 07/03/22 Propranolol HCl 20 mg PO BID #60 tablet 06/12/22 07/03/22 Promethazine [Phenergan] 25 mg PO Q6H PRN #10 tab 10/03/22 - Allergies Allergies/Adverse Reactions: Allergies Allergy/AdvReac Type Severity Reaction Status Date / Time iodine Allergy Severe Respiratory Verified 10/03/22 16:42 naproxen Allergy Unknown unknown Verified 10/03/22 16:42 doxycyccline Allergy Unknown unknown Uncoded 05/31/18 21:08 - Social History Does the pt smoke?: No Smoking Status: Never smoker Does the pt drink ETOH?: No Does the pt have substance abuse?: No - Immunizations Immunizations are current?: Yes - POLST Patient has POLST: No PD ED PE NORMAL - Vitals Vital signs reviewed: Yes - General General: Alert and oriented X 3, No acute distress - HEENT HEENT: Moist mucous membranes - Neck Neck: Supple, no meningeal sign - Cardiac Cardiac: RRR, Strong equal pulses - Respiratory Respiratory: No respiratory distress, Clear bilaterally - Abdomen Abdomen: Soft, Non tender, Non distended - Back Back: No CVA TTP - Derm Derm: Warm and dry - Extremities Extremities: No edema, No calf tenderness / cord - Neuro Neuro: Alert and oriented X 3 - Psych Psych: Normal mood, Normal affect Results - Vitals Vitals: Vital Signs - 24 hr 10/03/22 10/03/22 10/03/22 16:42 17:40 19:00 Temperature 37.2 C Heart Rate 78 78 74 Respiratory 16 16 16 Rate Blood Pressure 178/94 H 154/96 H 151/88 H O2 Saturation 100 100 100 10/03/22 21:00 Temperature 36.7 C Heart Rate 82 Respiratory 14 Rate Blood Pressure 144/85 H O2 Saturation 97 Oxygen O2 Source Room air - Labs Labs: Laboratory Tests 10/03/22 10/03/22 10/03/22 16:55 17:04 17:04 WBC 7.8 RBC 4.65 Hgb 14.0 Hct 41.9 MCV 90.1 MCH 30.1 MCHC 33.4 RDW 12.6 Plt Count 313 MPV 10.6 Neut # (Auto) 4.8 Lymph # (Auto) 2.2 Yancey # (Auto) 0.6 Eos # (Auto) 0.2 Baso # (Auto) 0.1 Absolute Nucleated RBC 0.00 Nucleated RBC % 0.0 Sodium 138 Potassium 4.0 Chloride 102 Carbon Dioxide 25 Anion Gap 11.0 BUN 10 Creatinine 0.7 Estimated GFR (MDRD) 91 Glucose 93 Calcium 9.5 Total Bilirubin 0.7 AST 18 ALT 22 Alkaline Phosphatase 67 Total Protein 8.3 H Albumin 4.3 Globulin 4.0 Albumin/Globulin Ratio 1.1 Lipase 31 Urine Color YELLOW Urine Clarity CLEAR Urine pH 7.0 Ur Specific [place] <=1.005 Urine Protein NEGATIVE Urine Glucose (UA) NEGATIVE Urine Ketones NEGATIVE Urine Occult Blood NEGATIVE Urine Nitrite NEGATIVE Urine Bilirubin NEGATIVE Urine Urobilinogen 0.2 (NORMAL) Ur Leukocyte Esterase NEGATIVE Ur Microscopic Review NOT INDICATED Urine Culture Comments NOT INDICATED Urine HCG, Qual NEGATIVE - Rads (name of study) CT abdomen pelvis Radiology: Final report received, See rad report PD Medical Decision Making - ED course Complexity details: reviewed results, re-evaluated patient, considered dif ferential, d/w patient ED course: No significant lab abnormalities. CBC is without abnormality. ER abdominal panel is normal other than a total protein of 8.3. Urinalysis does not show any acute abnormalities. CT scan consistent with constipation. She has MiraLAX at home. We will trial her on Phenergan rather than the Zofran to see if this helps her constipation. Patient is well-appearing, nontoxic. Patient counseled regarding signs and symptoms for which I believe and urgent re-evaluation would be necessary. Patient with good understanding of and agreement to plan and is comfortable going home at this time This document was made in part using voice recognition software. While efforts are made to proofread this document, sound alike and grammatical errors may occur. Departure - Departure Disposition: 01 Home, Self Care Clinical Impression: Abdominal pain Constipation Qualifiers: Constipation type: unspecified constipation type Qualified Code(s): K59.00 - Constipation, unspecified Condition: Good Instructions: ED Abdominal Pain Female Non-Specific Abdominal Pain, ED Constipation Follow-Up: your,doctor in 1 week [Other] Prescriptions: Promethazine [Phenergan] 25 mg PO Q6H PRN #10 tab PRN Reason: Nausea / Vomiting Comments: Your prescription was sent to [facility] in [place]. Please follow-up with your doctor for further care. Please return if you worsen. You can also use MiraLAX at home as needed for constipation. Make sure you are drinking plenty of water. ABDOMEN: Lung bases: Lung bases are clear. Heart size is normal. Solid organs: Liver is mildly prominent with steatosis. The spleen is normal in size and enhancement. Gallbladder is unremarkable. Biliary system is non dilated. Pancreas enhances normally. No adrenal nodules. Kidneys demonstrate normal size and enhancement, without hydronephrosis. Peritoneum and bowel: Bowel loops demonstrate normal wall thickness and caliber. Moderate scattered stool. Appendix is normal. No free fluid or air. Nodes and vessels: No retroperitoneal or mesenteric adenopathy by size criteria. Aorta and inferior vena cava are normal in size. Miscellaneous: No ventral hernias. PELVIS: Genitourinary: Bladder wall thickness is normal. Miscellaneous: No inguinal hernias or adenopathy. Bones: No suspicious bony lesions. No vertebral body compression fractures. IMPRESSION: No visualized acute intra-abdominal or pelvic process. Appendix is unremarkable. Moderate scattered stool suggestive of constipation. Discharge Date/Time: 10/03/22 21:34
[2022-10-03] MEDS ORDERED: iohexoL-300 100 ML VIAL ONE (18:08)
[2022-10-03] MEDS ORDERED: diphenhydrAMINE INJ 50 MG/ML VIAL IVP STA (18:22)
[2022-10-03] MEDS ORDERED: iohexoL-300 100 ML VIAL IVP ONE (20:45)
--- NOTE | 2022-10-03 20:54 | CT Report ---
PROCEDURE: ABDOMEN/PELVIS W INDICATIONS: RLQ abd pain CONTRAST: 100mL Omni 300 TECHNIQUE: After the administration of IV contrast, 5 mm thick sections acquired from the diaphragms to the symp hysis. 5 mm thick coronal and sagittal reformats were acquired. For radiation dose reduction, the f ollowing was used: automated exposure control, adjustment of mA and/or kV according to patient size. COMPARISON: CT abdomen pelvis 12/04/2014 FINDINGS: Image quality: Motion is present throughout portions of the exam, limiting areas of fine detail evalu ation. ABDOMEN: Lung bases: Lung bases are clear. Heart size is normal. Solid organs: Liver is mildly prominent with steatosis. The spleen is normal in size and enhancement . Gallbladder is unremarkable. Biliary system is non dilated. Pancreas enhances normally. No adre nal nodules. Kidneys demonstrate normal size and enhancement, without hydronephrosis. Peritoneum and bowel: Bowel loops demonstrate normal wall thickness and caliber. Moderate scattered stool. Appendix is normal. No free fluid or air. Nodes and vessels: No retroperitoneal or mesenteric adenopathy by size criteria. Aorta and inferior vena cava are normal in size. Miscellaneous: No ventral hernias. PELVIS: Genitourinary: Bladder wall thickness is normal. Miscellaneous: No inguinal hernias or adenopathy. Bones: No suspicious bony lesions. No vertebral body compression fractures. IMPRESSION: No visualized acute intra-abdominal or pelvic process. Appendix is unremarkable. Moderate scattered stool suggestive of constipation. Reviewed by: Ya Boston MD on 10/03/2022 8:52 PM PST Approved by: Ya Boston MD on 10/03/2022 8:52 PM PST Station ID: [id number]
[2022-10-03 21:17] VITALS: BP 144/85
== END 2022-10-03 21:34 | disposition home or self-care (01) ==
LOC: ED 16:37
DX: K59.00 Constipation, unspecified (principal); R10.9 Unspecified abdominal pain
CPT/HCPCS: 36415; 74177; 80053; 81003; 81025; 83690; 85025; 96374; 99282; 99284; J1200; Q9967; 81001; 87086

== ENCOUNTER 2022-11-15 13:45 | Emergency (ER) | payer OTHER ==
[2022-11-15 13:55] VITALS: BP 147/99
[2022-11-15] MEDS ORDERED: CYCLOBENZAPRINE 10 MG TABLET PO STA (14:09)
--- NOTE | 2022-11-15 14:14 | ED Physician Documentation ---
History of Present Illness - Stated complaint Stated Complaint: R SHLDR PX - Chief complaint Chief Complaint: Ext Problem - Additonal information Additional information: Very pleasant 41-year-old female presents emergency department for evaluation of 2 to 3 days right posterior shoulder and neck pain. States her symptoms began after she slept upright overnight in order to help drain her sinuses. Since then she has had pain anytime she moves her neck or right shoulder. No falls or trauma. No fevers. No arm swelling. No paresthesias. denies chest pain or SOA She does have a history of breast cancer status post bilateral mastectomy. She never required chemotherapy or radiation. Meds: Propanolol and Crestor only. 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 : None HEENT: None Psych: None Musculoskeletal: None Derm: None - Past Surgical History Past Surgical History: Yes /SOFTWARE QUALITY TEST ENGINEER: section, Dilation and currettage, Tubal ligation, Mastectomy, LEEP (Cervical surgery), Other - Present Medications Home Medications: Ambulatory Orders Medication Instructions Recorded Confirmed Rosuvastatin Calcium [Crestor] 5 mg PO DAILY 04/13/22 07/03/22 Ondansetron Odt [Zofran Odt] 4 mg TL Q6H PRN 06/04/22 07/03/22 oxyCODONE [Roxicodone] 5 mg PO Q4HR MDD pain 06/04/22 07/03/22 Propranolol HCl 20 mg PO BID #60 tablet 06/12/22 07/03/22 Promethazine [Phenergan] 25 mg PO Q6H PRN #10 tab 10/03/22 Cyclobenzaprine [Flexeril] 10 mg PO TID PRN #20 tablet 11/15/22 - Allergies Allergies/Adverse Reactions: Allergies Allergy/AdvReac Type Severity Reaction Status Date / Time iodine Allergy Severe Respiratory Verified 10/03/22 16:42 naproxen Allergy Unknown unknown Verified 10/03/22 16:42 doxycyccline Allergy Unknown unknown Uncoded 05/31/18 21:08 Lidocaine patch Allergy Unknown Uncoded 11/15/22 13:56 - Social History Does the pt smoke?: No Smoking Status: Never smoker Does the pt drink ETOH?: No Does the pt have substance abuse?: No - Immunizations Immunizations are current?: Yes - POLST Patient has POLST: No PD ED PE EXPANDED - General General: Alert, No acute distress - Neck Neck: Other (Mild tenderness elicited with deeper palpation of the right paraspinous cervical muscles with extension down the trapezius. Full range of motion of the neck in all planes. No midline tenderness. No pain with axial loading. Motor strength is 5 of 5 bilateral upper extremities. ) - Extremities Extremities: Right shoulder (Some tenderness with palpation of the posterior shoulder joint with extension into the trapezius but full range of motion of the shoulder in all planes without swelling. No loss of motor strength. No paresthesias.) Results - Vitals Vitals: Vital Signs - 24 hr 11/15/22 11/15/22 13:52 14:03 Temperature 37.2 C Heart Rate 82 Respiratory 15 16 Rate Blood Pressure 147/99 H O2 Saturation 100 Oxygen O2 Source Room air PD Medical Decision Making - ED course Complexity details: considered differential, d/w patient ED course: This is a very well-appearing 41-year-old female who has a history of breast cancer status postmastectomy. She never required chemotherapy or radiation. She presents with 3 days of right posterior shoulder pain. Pain extends from the shoulder into the neck and down the trapezius region. This occurred after she slept upright in a chair to help drain her sinuses. I am given the absence of falls or trauma x-ray imaging was deferred. Patient was concerned that she could have a DVT though there is no swelling of this arm or tenderness. I have low suspicion for DVT on exam. Given that much of the pain was elicited with palpation of the trapezius muscle body I suspect that this is a strain from sitting upright. I have recommended the patient to use a tennis ball on her neck. Alternate Tylenol and Motrin at home. She is requesting a limited amount of Flexeril which I think is reasonable. We discussed the usual and emergent return precautions. Departure - Departure Disposition: 01 Home, Self Care Clinical Impression: Strain of right trapezius muscle Qualifiers: Encounter type: initial encounter Qualified Code(s): S46.811A - Strain of other muscles, fascia and tendons at shoulder and upper arm level, right arm, initial encounter Condition: Stable Record reviewed to determine appropriate education?: Yes Prescriptions: Cyclobenzaprine [Flexeril] 10 mg PO TID PRN #20 tablet PRN Reason: Spasms Comments: Bernice as we discussed at the bedside your history and exam is most consistent with a simple strain of the trapezius muscle. This is not a story or examination that suggests a deep vein thrombosis. I suspect that simply sleeping in the new position when upright may have caused this pain. In general I recommend that you roll your back and neck on a tennis ball against the wall. You can take 500 mg of Tylenol 2-3 times a day or alternate with ibuprofen/Motrin at home. I have prescribed a limited amount of Flexeril and a muscle relaxer that may be helpful. It can be sedating and I recommend you take it only at night. I am with the pain medication at home and the muscle relaxer I would expect her symptoms to be getting markedly better over the next 3 to 5 days. Reasons to return to the emergency department would include swelling of your upper extremity, redness or fevers.
== END 2022-11-15 14:35 | disposition home or self-care (01) ==
LOC: ED 13:45
DX: S46.811A Strain of other muscles, fascia and tendons at shoulder and upper arm level, right arm, initial encounter (principal); X58.XXXA Exposure to other specified factors, initial encounter
CPT/HCPCS: 99282; 99283; A9270

== ENCOUNTER 2023-06-19 12:54 | Emergency (ER) | payer OTHER ==
--- NOTE | 2023-06-19 13:26 | ED Physician Documentation ---
PD HPI HEADACHE - Stated complaint Stated Complaint: DIZZY,HIGH BP - Chief complaint Chief Complaint: General - History obtained from History obtained from: Patient - History of Present Illness Timing - onset: Today Timing - onset during: Rest, Light activity Timing - duration: Hours Timing - details: Gradual onset, Still present Pain level max: 4 Pain level now: 4 Worst headache ever?: No: Worst headache ever? (has had a few headaches over years. No regular pattern.) Location: Back, Left Quality: Throbbing, Aching Associated symptoms: Nausea, Vision changes (she says some blurring of vision. no loss of vision.). No: Fever, Stiff neck Worsened by: Light Contributing factors: Hypertension (she takes propranolol for HTN and then amlodipine PRN if BP higher that day. She checks BP 2-3 times daily and says it has been normal to low most recently. Was elevated today after headache started. She called EMS and they corroborated the BP being high about 160-170 systolic. Urged to go to ER.). No: Anticoagulated Similar symptoms before: Has not had sx before (usually BP is normal to low, but if it gets about 130 systolic or higher that day, she takes an extra med amlodipine for that day. This occurs about 2 times per week on average. Usually without headache.) Recently seen: Not recently seen Review of Systems Constitutional: denies: Fever, Chills Eyes: reports: Decreased vision (blurred), Photophobia. denies: Loss of vision Nose: denies: Rhinorrhea / runny nose, Congestion Throat: denies: Sore throat Respiratory: denies: Cough Neurologic: reports: Headache (moderate). denies: Focal weakness, Numbness, Near syncope, Confused, Altered mental status PD PAST MEDICAL HISTORY - Past Medical History Cardiovascular: Hypertension, High cholesterol Respiratory: None Neuro: None, Other (only rare headaches in the past that sound migraine like. 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: Breast cancer : None HEENT: None Psych: None Musculoskeletal: None Derm: None - Past Surgical History Past Surgical History: Yes /HOME CARE ASSOCIATE: section, Dilation and currettage, Tubal ligation, Mastectomy, LEEP (Cervical surgery), Other - Present Medications Home Medications: Ambulatory Orders Medication Instructions Recorded Confirmed Rosuvastatin Calcium [Crestor] 5 mg PO HS 04/13/22 06/19/23 Amlodipine Besylate [Norvasc] 2.5 mg PO DAILY 06/19/23 06/19/23 Propranolol HCl 20 mg PO DAILY 06/19/23 06/19/23 - Allergies Allergies/Adverse Reactions: Allergies Allergy/AdvReac Type Severity Reaction Status Date / Time iodine Allergy Severe Respiratory Verified 06/19/23 13:06 naproxen Allergy Unknown unknown Verified 06/19/23 13:06 doxycyccline Allergy Unknown unknown Uncoded 06/19/23 13:06 Lidocaine patch Allergy Unknown Uncoded 06/19/23 13:06 - Social History Does the pt smoke?: No Smoking Status: Never smoker Does the pt drink ETOH?: No Does the pt have substance abuse?: No - Immunizations Immunizations are current?: Yes - POLST Patient has POLST: No PD ED PE NORMAL - Vitals Vital signs reviewed: Yes - General General: Alert and oriented X 3, No acute distress, Well developed/nourished - HEENT HEENT: Atraumatic, PERRL, EOMI (normal visual howe) - Neck Neck: Supple, no meningeal sign, No adenopathy - Cardiac Cardiac: RRR, No murmur - Respiratory Respiratory: Clear bilaterally - Derm Derm: Normal color, Warm and dry - Extremities Extremities: No edema - Neuro Neuro: Alert and oriented X 3, personal development coach 2-12 intact, No motor deficit, No sensory deficit, Normal speech Eye Opening: Spontaneous Motor: Obeys Commands Verbal: Oriented GCS Score: 15 - Psych Psych: Normal mood, Normal affect Results - Vitals Vitals: Vital Signs - 24 hr 06/19/23 06/19/23 06/19/23 13:01 13:22 15:27 Temperature 37.0 C Heart Rate 71 71 85 Respiratory 16 16 21 Rate Blood Pressure 175/103 H 137/96 H 133/88 H O2 Saturation 100 97 100 Oxygen O2 Source Room air - Labs Labs: Laboratory Tests 06/19/23 14:02 Sodium 138 Potassium 3.8 Chloride 104 Carbon Dioxide 26 Anion Gap 8.0 BUN 7 Creatinine 0.7 Estimated GFR (MDRD) 91 Glucose 107 H Calcium 9.8 Total Bilirubin 0.5 AST 15 ALT 14 Alkaline Phosphatase 83 C-Reactive Protein 0.6 Total Protein 8.0 Albumin 4.6 Globulin 3.4 Albumin/Globulin Ratio 1.4 Lipase 8 L PD Medical Decision Making - ED course Complexity details: re-evaluated patient, considered differential (her headache description sounds migraine-like with pressure/throbbing, nausea, blurred vision, and light sensitive. Rare migraines in the past. No pattern regularly. No recent illness nor injury. She does not appear in much discomfort. ), d/w patient ED course: discussed treatment options with pt. I suggested IV meds targeted as migraine with Toradol and Compazine. She is in agreement. Shared decision to not do CT imaging nor LP as does not seem meningitic, not ill, was not abrupt onset, no focal deficits. To re-evaluate after IV meds. After IV fluids and meds, she says the headache is essentially gone, vision is normal, and her BP is now 138 systolic. No further testing or eval at this point. To consider potential early viral symptoms and to see how she feels over the next couple of days. Departure - Departure Disposition: 01 Home, Self Care Clinical Impression: Headache, Elevated blood pressure reading Migrainous headache without aura Qualifiers: Status migrainosus presence: without status migrainosus Intractability: not intractable Qualified Code(s): G43.009 - Migraine without aura, not intractable, without status migrainosus Condition: Stable Record reviewed to determine appropriate education?: Yes Follow-Up: Della Adam PA-C [Primary Care Provider] - Comments: The character and components of your headaches sound like a migraine type headache. It improved with medication that we typically use to target migraines. Your blood pressure was elevated but improved with treating symptoms. I would continue with your current blood pressure medication dosings. Tylenol ibuprofen if needed for any residual headache later today. Recheck if not fully resolved over the next couple of days. Follow-up with your primary care if recurring pattern of similar headaches as it can be medications to take for these if recurrent. Forms: PCP List Discharge Date/Time: 06/19/23 15:28
[2023-06-19] MEDS ORDERED: SODIUM CHLORIDE 0.9% 1,000 ML IV STA (13:52)
[2023-06-19] MEDS ORDERED: PROCHLORPERAZINE 10 MG/2 ML VIAL IVP STA (13:52)
[2023-06-19] MEDS ORDERED: KETOROLAC 15 MG/ML VIAL IVP STA (13:52)
[2023-06-19] MEDS ORDERED: ACETAMINOPHEN 325 MG TABLET PO STA (13:53)
[2023-06-19 14:21] LABS: ALBUMIN 4.6 g/dL (3.2-5.5); ALBUMIN/GLOBULIN RATIO 1.4 (1.0-2.2); BILIRUBIN,TOTAL 0.5 mg/dL (0.2-1.0); CALCIUM 9.8 mg/dL (8.5-10.3); CREATININE 0.7 mg/dL (0.6-1.3); CRP - C-REACTIVE PROTEIN 0.6 mg/dL (<0.5); POTASSIUM 3.8 mmol/L (3.5-4.5)
[2023-06-19 15:29] VITALS: BP 133/88; O2SAT 100
== END 2023-06-19 15:28 | disposition home or self-care (01) ==
LOC: ED 12:54
DX: G43.009 Migraine without aura, not intractable, without status migrainosus (principal); I10 Essential (primary) hypertension
CPT/HCPCS: 36415; 80053; 83690; 86140; 96374; 96375; 99283; A9270

== ENCOUNTER 2023-06-22 07:05 | Outpatient (CLI) | payer OTHER ==
[2023-06-22 07:32] LABS: BASOPHILS % (AUTO) 0.7 %; EOSINOPHILS # (AUTO) 0.1 10^3/uL (0.0-0.7); EOSINOPHILS % (AUTO) 1.9 %; HCT - HEMATOCRIT 40.8 % (37.0-47.0); HGB - HEMOGLOBIN 13.6 g/dL (12.0-16.0); LYMPHOCYTES # (AUTO) 1.4 10^3/uL (1.5-3.5); LYMPHOCYTES % (AUTO) 23.8 %; MEAN CORPUSCULAR HEMOGLOBIN 30.2 pg (27.0-31.0); MEAN CORPUSCULAR HGB CONC 33.3 g/dL (32.0-36.0); MEAN CORPUSCULAR VOLUME 90.7 fL (81.0-99.0); MEAN PLATELET VOLUME 10.7 fL (7.9-10.8); MONOCYTES # (AUTO) 0.4 10^3/uL (0.0-1.0); MONOCYTES % (AUTO) 6.7 %; NEUTROPHILS # (AUTO) 3.9 10^3/uL (1.5-6.6); NEUTROPHILS % (AUTO) 66.6 %; PLT - PLATELET COUNT 294 10^3/uL (130-450); RED CELL DISTRIBUTION WIDTH 12.2 % (12.0-15.0); WHITE BLOOD COUNT 5.8 x10^3/uL (4.8-10.8)
[2023-06-22 07:45] LABS: CHOL/HDL RATIO 3.5 (<4.4); CHOLESTEROL 146 mg/dL; HDL CHOLESTEROL 42 mg/dL; LDL CHOLESTEROL,CALCULATED 66 mg/dL; LDL/HDL RATIO 1.6 (<4.4); TRIGLYCERIDES 189 mg/dL (48-352); VLDL CHOLESTEROL 38 mg/dL
[2023-06-22 08:02] LABS: THYROID STIMULATING HORMONE 1.49 uIU/mL (0.34-5.60)
--- NOTE | 2023-06-22 14:40 | XRAY Report ---
PROCEDURE: Chest 2 View X-Ray INDICATIONS: DYSPNEA ON EXERTION TECHNIQUE: 2 views of the chest were acquired. COMPARISON: None. FINDINGS: Surgical changes and devices: None. Lungs and pleura: No pleural effusions or pneumothorax. Lungs are clear. Mediastinum: Mediastinal contours appear normal. Heart size is normal. Bones and chest wall: No suspicious bony lesions. Overlying soft tissues appear unremarkable. IMPRESSION: No acute cardiopulmonary process. Reviewed by: Oscar Gibbons on 06/22/2023 2:39 PM PDT Approved by: Oscar Gibbons on 06/22/2023 2:39 PM PDT Station ID: [id number]
== END 2023-06-22 07:06 | disposition home or self-care (01) ==
LOC: DI 07:05
PROVIDERS: ATTEND Physician Assistant Medical
DX: Z00.00 Encounter for general adult medical examination without abnormal findings (principal); R06.09 Other forms of dyspnea; E78.2 Mixed hyperlipidemia
CPT/HCPCS: 36415; 80061; 83721; 84443; 85025; 85379

== ENCOUNTER 2023-07-09 09:47 | Outpatient (CLI) | payer OTHER ==
--- NOTE | 2023-07-09 20:57 | XRAY Report ---
PROCEDURE: Neck Soft Tissue INDICATIONS: GLOBUS HYSTERICUS TECHNIQUE: 2 views of the neck were acquired. COMPARISON: None FINDINGS: Airway: The airway appears patent. Soft tissues: Prevertebral soft tissues are normal in thickness. The epiglottis and aryepiglottic f olds appear normal. No soft tissue gas. Bones: No suspicious bony lesions. Visualized cervical spine is normally aligned. Degenerative rev ersal of normal cervical lordosis IMPRESSION: No radiopaque foreign body. Degenerative cervical spine Reviewed by: Lazaro Glvoer MD on 07/09/2023 7:23 PM AKDT Approved by: Lazaro Glover MD on 07/09/2023 7:23 PM AKDT Station ID: [id number]
== END 2023-07-09 23:59 | disposition home or self-care (01) ==
LOC: DI.N 09:47
PROVIDERS: ATTEND Physician Assistant Medical
DX: F45.8 Other somatoform disorders (principal); M47.812 Spondylosis without myelopathy or radiculopathy, cervical region

== ENCOUNTER 2023-07-25 16:30 | Outpatient (CLI) | payer OTHER ==
[2023-07-25 20:29] LABS: BASOPHILS % (AUTO) 0.7 %; EOSINOPHILS # (AUTO) 0.1 10^3/uL (0.0-0.7); EOSINOPHILS % (AUTO) 1.4 %; HGB - HEMOGLOBIN 14.6 g/dL (12.0-16.0); LYMPHOCYTES # (AUTO) 1.5 10^3/uL (1.5-3.5); LYMPHOCYTES % (AUTO) 25.6 %; MEAN CORPUSCULAR HGB CONC 33.2 g/dL (32.0-36.0); MEAN CORPUSCULAR VOLUME 90.5 fL (81.0-99.0); MEAN PLATELET VOLUME 10.9 fL (7.9-10.8); MONOCYTES # (AUTO) 0.4 10^3/uL (0.0-1.0); NEUTROPHILS # (AUTO) 3.9 10^3/uL (1.5-6.6); NEUTROPHILS % (AUTO) 66.1 %; PLT - PLATELET COUNT 332 10^3/uL (130-450); RED BLOOD COUNT 4.86 10^6/uL (4.20-5.40); RED CELL DISTRIBUTION WIDTH 12.5 % (12.0-15.0); WHITE BLOOD COUNT 5.8 x10^3/uL (4.8-10.8)
[2023-07-25 20:42] LABS: ALBUMIN 4.9 g/dL (3.2-5.5); ALBUMIN/GLOBULIN RATIO 1.5 (1.0-2.2); ALKALINE PHOSPHATASE 86 IU/L (42-121); ALT ALANINE AMINOTRANSFERASE 21 IU/L (10-60); AST ASPARTATE AMINOTRANSFERASE 16 IU/L (10-42); BILIRUBIN,TOTAL 0.4 mg/dL (0.2-1.0); BUN - BLOOD UREA NITROGEN 5 mg/dL (6-20); CALCIUM 9.8 mg/dL (8.5-10.3); CARBON DIOXIDE - CO2 28 mmol/L (21-32); CHLORIDE 104 mmol/L (101-111); CREATININE 0.8 mg/dL (0.6-1.3); CRP - C-REACTIVE PROTEIN < 0.5 mg/dL (<0.5); GFR - MDRD 78 (>89); GLUCOSE 90 mg/dL (74-104); POTASSIUM 3.5 mmol/L (3.5-4.5); SODIUM 140 mmol/L (135-145); TOTAL PROTEIN 8.1 g/dL (6.4-8.9)
[2023-07-25 20:47] LABS: HCG,QUALITATIVE BLOOD NEGATIVE
[2023-07-25 20:55] LABS: THYROID STIMULATING HORMONE 2.34 uIU/mL (0.34-5.60)
[2023-07-25 21:00] LABS: ESTIMATED AVERAGE GLUCOSE 111 mg/dL (70-100); HEMOGLOBIN A1c% 5.5 % (4.27-6.07)
[2023-07-25 21:36] LABS: LIPASE < 10 U/L (11-82)
== END 2023-07-25 16:45 | disposition home or self-care (01) ==
LOC: LAB.N 16:30
PROVIDERS: ATTEND Registered Nurse
DX: R10.9 Unspecified abdominal pain (principal); R68.81 Early satiety
CPT/HCPCS: 36415; 80053; 83036; 83690; 84443; 84703; 85025; 86140

== ENCOUNTER 2023-07-25 17:48 | Outpatient (CLI) | payer OTHER ==
--- NOTE | 2023-07-26 20:09 | XRAY Report ---
PROCEDURE: Abdomen Acute INDICATIONS: ABDOMINAL PAIN,ACUTE, EARLY SATIETY TECHNIQUE: 4 views of the abdomen were acquired. COMPARISON: CT abdomen and pelvis on October 03, 2022. FINDINGS: Surgical changes and devices: None. Chest: Lungs are clear. Heart size is normal. No pleural effusions. No pneumoperitoneum. Bowel: No pneumoperitoneum. No portal venous gas. The bowel gas pattern is normal. Above average co lonic stool burden. Soft tissues: No masses; visualized solid organ contours appear normal in size. No suspicious abdom inal calcifications. Bones: No suspicious bony abnormalities. No acute fracture. IMPRESSION: 1.No acute abdominal or chest pathology. If symptoms persist, consider cross-sectional imaging for fu rther evaluation. 2.Above average colonic stool burden which may correlate with constipation. Reviewed by: Anibal Sage MD on 07/26/2023 8:08 PM PDT Approved by: Anibal Sage MD on 07/26/2023 8:08 PM PDT Station ID: [id number]
== END 2023-07-25 17:49 | disposition home or self-care (01) ==
LOC: DI 17:48
PROVIDERS: ATTEND Registered Nurse
DX: R10.9 Unspecified abdominal pain (principal); R68.81 Early satiety
CPT/HCPCS: 36415; 80053; 83036; 83690; 84443; 84703; 85025; 86140

== ENCOUNTER 2023-08-02 08:01 | Outpatient (CLI) | payer OTHER ==
--- NOTE | 2023-08-02 10:01 | CT Report ---
PROCEDURE: SINUS SCREENING WO INDICATIONS: BACTERIAL SINUSITIS TECHNIQUE: Noncontrast 3.0 mm axial images acquired from the frontal sinuses to the mid-sella, with coronal and sagittal reformats. For radiation dose reduction, the following was used: automated exposure control , adjustment of mA and/or kV according to patient size. COMPARISON: None. FINDINGS: Image quality: Excellent. Maxillary Sinuses: No bony remodeling or destruction. Moderate mucosal thickening is seen within the inferior left maxillary sinus. Ethmoid Air Cells: No bony remodeling or destruction. Sinuses are clear. Sphenoid Sinuses: No bony remodeling or destruction. Sinuses are clear. Frontal Sinuses: No bony remodeling or destruction. Mild mucosal thickening is seen within the infer omedial left frontal sinus. Ostiomeatal Complexes: The ostiomeatal complexes are patent, yet they are constitutionally narrowed, with bilateral Marianne cells. Miscellaneous: Visualized intra-orbital contents are normal. No cat bullosa. There is mild rig htward nasal septal deviation. IMPRESSION: Scattered paranasal sinus disease is seen, which is worst within the inferior left maxillary sinus. The ostiomeatal complexes are patent, yet they are constitutionally narrowed, with bilateral Marianne c ells. Mild rightward nasal septal deviation. Reviewed by: John Patel MD on 08/02/2023 8:59 AM [facility] Approved by: oJhn Patel MD on 08/02/2023 8:59 AM [facility] Station ID: [id number]
== END 2023-08-02 08:02 | disposition home or self-care (01) ==
LOC: DI 08:01
PROVIDERS: ATTEND Physician Assistant Medical
DX: J32.0 Chronic maxillary sinusitis (principal); B96.89 Other specified bacterial agents as the cause of diseases classified elsewhere; J34.2 Deviated nasal septum

== ENCOUNTER 2023-08-25 07:42 | Outpatient (CLI) | payer OTHER ==
--- NOTE | 2023-08-25 10:36 | CT Report ---
PROCEDURE: SOFT TISSUE NECK WO INDICATIONS: DYSPHAGIA TECHNIQUE: Non-contrast 3.0 mm axial sections acquired from the sella to the aortic arch. Additiona l oblique axial 3.0 mm sections acquired through the pharynx. 3 mm thick coronal reformats were gene rated. For radiation dose reduction, the following was used: automated exposure control, adjustment of mA and/or kV according to patient size. COMPARISON: Radiograph July 09, 2023 FINDINGS: Image quality: Excellent. Lymph nodes: No enlarged lymph nodes seen throughout the neck. Vessels: Non-opacified vessels appear normal in caliber. Neck spaces: The oropharynx, nasopharynx, and pharynx demonstrate no mucosal lesions. The vocal cor ds, false vocal cords, pyriform sinuses, epiglottis, vallecula, and tongue base all appear normal. E xtramucosal spaces appear unremarkable. Glands: The parotid and submandibular glands appear normal, without stones. The thyroid is normal i n size and there are no incidental findings. Miscellaneous: Visualized brain and orbits appear normal. Lung apices appear clear. Superficial so ft tissues appear normal. IMPRESSION: Normal CT of the neck without contrast Reviewed by: Eleuterio Evangelista MD on 08/25/2023 9:34 AM [place] Approved by: Eleuterio Evangelista MD on 08/25/2023 9:34 AM [facility] Station ID: [id number]
== END 2023-08-25 07:43 | disposition home or self-care (01) ==
LOC: DI 07:42
PROVIDERS: ATTEND Physician Assistant Medical
DX: R13.10 Dysphagia, unspecified (principal)

== ENCOUNTER 2023-09-19 08:45 | Outpatient (CLI) | payer OTHER | END 2023-09-19 08:46 | disposition home or self-care (01) | LOC: DI 08:45 | PROVIDERS: ATTEND Physician Assistant Medical | DX: R06.09 Other forms of dyspnea (principal); I87.8 Other specified disorders of veins | CPT/HCPCS: 93306 ==

== ENCOUNTER 2024-02-13 12:29 | Outpatient (CLI) | payer OTHER ==
--- NOTE | 2024-02-13 15:08 | XRAY Report ---
PROCEDURE: Lumbar Spine 2-3V INDICATIONS: ARTHRALGIAS OF BACK TECHNIQUE: 3 views of the lumbar spine were acquired. COMPARISON: CT lumbar spine, 11/25/2016 and 02/25/2015. FINDINGS: Bones: 5 [id number] vertebrae are present. There is normal bony alignment. No vertebral body compression fractures. No suspicious bony lesions. [id number] degenerative disc disease at L3 -L4, L4- L5 and L5-S1. Moderate facet arthropathy at L4-L5 and L5-S1. Soft tissues: Overlying bowel gas pattern is normal. No suspicious soft tissue calcifications. IMPRESSION: 1. Degenerative disc and facet disease as described. Reviewed by: Rafiq Pink MD on 02/13/2024 3:06 PM PDT Approved by: Rafiq Pink MD on 02/13/2024 3:06 PM PDT Station ID: [id number]
== END 2024-02-13 12:30 | disposition home or self-care (01) ==
LOC: DI 12:29
PROVIDERS: ATTEND Internal Medicine
DX: M47.816 Spondylosis without myelopathy or radiculopathy, lumbar region (principal); M51.36 Other intervertebral disc degeneration, lumbar region

== ENCOUNTER 2024-03-26 10:38 | Outpatient (CLI) | payer OTHER ==
--- NOTE | 2024-03-26 17:14 | XRAY Report ---
PROCEDURE: Knee 3V BL INDICATIONS: BILATERAL KNEE PAIN TECHNIQUE: 327 (888 02/07/2022 views of the knee(s) were acquired. COMPARISON: None. FINDINGS: Bones: No fractures or dislocations. No suspicious bony lesions. There is mild bilateral medial f emorotibial compartment narrowing and small intercondylar osteophytes. Soft tissues: No knee joint effusion. No suspicious soft tissue calcifications or masses. IMPRESSION: No acute bony abnormality. Mild degenerative change, stable Reviewed by: Eden Hampton MD on 03/26/2024 5:13 PM PDT Approved by: Eden Hampton MD on 03/26/2024 5:13 PM PDT Station ID: [id number]
== END 2024-03-26 10:39 | disposition home or self-care (01) ==
LOC: DI 10:38
PROVIDERS: ATTEND Physician Assistant Medical
DX: M17.0 Bilateral primary osteoarthritis of knee (principal)

== ENCOUNTER 2024-07-01 09:23 | Day surgery (SDC) | payer OTHER ==
[2024-07-01] MEDS: LACTATED RINGERS 1,000 ML IV ONE ×2 (09:30→12:49)
[2024-07-01 09:47] LABS: HCG UR QUAL NEGATIVE
--- NOTE | 2024-07-01 11:26 | ANESTHESIA ---
Pre-Anesthesia VS, & Labs - Diagnosis screening exam - Procedure colonoscopy Vital Signs: Temp Pulse Resp BP Pulse Ox O2 Flow Rate 36.3 C L 104 H 14 135/86 H 100 07/01/24 09:48 07/01/24 09:48 07/01/24 09:48 07/01/24 09:48 07/01/24 09:48 Height: 5 ft 6 in Weight (kg): 86.18 kg Body Mass Index: 30.7 BMI Classification: Obese - NPO >8 hours - Is Patient ?: No Home Medications and Allergies Rosuvastatin Calcium [Crestor] 5 mg PO HS 04/13/22 Amlodipine Besylate [Norvasc] 2.5 mg PO DAILY 06/19/23 omeprazole as needed Allergies/Adverse Reactions: Allergies Allergy/AdvReac Type Severity Reaction Status Date / Time iodine Allergy Severe Respiratory Verified 06/19/23 13:06 naproxen Allergy Unknown unknown Verified 06/19/23 13:06 doxycyccline Allergy Unknown unknown Uncoded 06/19/23 13:06 Lidocaine patch Allergy Unknown Uncoded 06/19/23 13:06 Anes History & Medical History - Anesthetic History Anesthesia Complications: reports: No previous complications - Medical History Cardiovascular: reports: Hypertension, High cholesterol Pulmonary: reports: None Gastrointestinal: reports: GERD (controlled with med) Urinary: reports: None Neuro: reports: None, Other (only rare headaches in the past that sound migraine like. ) Musculoskeletal: reports: None Endocrine/Autoimmune: reports: None Blood Disorders: reports: None Skin: reports: None Smoking Status: Never smoker Psychosocial: reports: No issues indicated History of Cancer?: Yes (breast s/p adriana mastectomy) - Surgical History Gynecologic: reports: section, Dilation and currettage, Tubal ligation, Mastectomy, LEEP (Cervical surgery), Other Exam General: Alert, Oriented x3, Cooperative, No acute distress Dental: WNL Mouth Openin Fingerbreadth Neck Mobility: Normal Mallampati classification: II Thyromental Distance: 4-6 cm Mental/Cognitive Status: Alert/Oriented X3, Normal for patient Plan Anesthesia Type: General Consent for Procedure(s) Verified and Reviewed: Yes Code Status: Attempt Resuscitation ASA classification: 2-Mild systemic disease Is this case an emergency?: No
[2024-07-01] MEDS ORDERED: MIDAZOLAM 2 MG/2 ML VIAL ONE (12:29)
[2024-07-01] MEDS ORDERED: PROPOFOL 500 MG/50 ML 500 MG/50 ML VIAL ONE (12:32)
[2024-07-01 13:29] VITALS: BP 151/93; O2SAT 99
--- NOTE | 2024-07-01 14:21 | ANESTHESIA POST OP EVALUATION ---
Anesthesia Post Eval - Post Anesthesia Eval Vitals: Last Vital Signs Temp 36.2 C L 07/01/24 13:10 Pulse 83 07/01/24 13:10 Resp 16 07/01/24 13:10 BP 151/93 H 07/01/24 13:10 Pulse Ox 99 07/01/24 13:10 O2 Flow Rate CV Function Including HR & BP: Stable Pain Control: Satisfactory Nausea & Vomiting: Negative Mental Status: Baseline Respiratory Status: Airway Patent Hydration Status: Satisfactory Anesthesia Complications: None
== END 2024-07-01 09:24 | disposition home or self-care (01) ==
LOC: SDS 09:23
PROVIDERS: ATTEND Surgery
DX: Z12.11 Encounter for screening for malignant neoplasm of colon (principal); F41.9 Anxiety disorder, unspecified; K21.9 Gastro-esophageal reflux disease without esophagitis; I10 Essential (primary) hypertension; E66.9 Obesity, unspecified; Z68.30 Body mass index [BMI] 30.0-30.9, adult
CPT/HCPCS: 45378; 81025; J7120